=== PATIENT | male | born 1930 | race African-American/Black ===

== ENCOUNTER 2016-10-08 15:02 | Inpatient (IN) | payer OTHER ==
[~2016-10-08] VITALS: Ht 175.3 cm; Wt 70.4 kg
[~2016-10-08 15:02] MED LIST: ACET500T68 PO; AMLO10TA2 PO; AMLO5TAB2 PO; ASPI-39 PO; ASPI81TA2 PO; CARB1TAB48 PO; CLON0.5T3 PO; CLOP75TA PO; CLOP75TA27 PO; CRESTOR20 MG PO; DOCU240C13 PO; DONE10TA34 PO; DULO30CA2 PO; ERGO500012 PO; EZET10TA3 PO; FERR-26 PO; HYDR-971 PO; ISOS60TA2 PO; LORA0.5T PO; MAG355OR30 PO; MEMA5TAB PO; METO-269 PO; NITR0.4T6 SL; QUET25TA PO; RANO500T2 PO
--- NOTE | 2016-10-08 15:59 | RAD ---
Indication change in mental status. Unresponsive. Suspect CVA. Protocol exam. A single view of the chest was obtained and is compared to a study 12/13/2013. Postoperative changes are noted. Heart size is within normal limits. There is no congestive heart failure focal infiltrate or significant pleural fluid collection. IMPRESSION: No acute finding apparent in the chest
[2016-10-08 16:51] LABS: BASO % 0 % (0-3); EOS % 4 % (0-3); HEMATOCRIT 35.4 % (39.0-53.0); HEMOGLOBIN 11.3 g/dL (13.0-17.5); LYMPH # 1.4 x10^3/uL (1.0-4.8); LYMPH % 32 % (24-48); MEAN CORPUSCULAR HEMOGLOBIN 29 pg (25-35); MEAN CORPUSCULAR HGB CONC 32 g/dL (31-37); MEAN CORPUSCULAR VOLUME 90 fL (79-100); MONO % 15 % (0-9); NEUT % 49 % (31-73); PLATELET COUNT 96 x10^3/uL (140-400); RED BLOOD COUNT 3.95 x10^6/uL (4.30-5.70); RED CELL DISTRIBUTION WIDTH 13.1 % (11.5-14.5); WHITE BLOOD COUNT 4.4 x10^3/uL (4.0-11.0)
[2016-10-08 16:59] LABS: INR 1.1 (0.8-1.1); PROTHROMBIN TIME PATIENT 13.5 SEC (11.7-14.0)
--- NOTE | 2016-10-08 17:07 | RAD ---
PROCEDURE CT head without contrast HISTORY Altered mental status, history of stroke TECHNIQUE Noncontrast CT imaging was performed of the head. Exposure: One or more of the following individualized dose reduction techniques were utilized for this exam: 1. Automated exposure control. 2. Adjustment of the mA and/or kV according to patient size. 3. Use of iterative reconstruction technique. COMPARISON November 17, 2013 FINDINGS No acute intracranial hemorrhage is identified. There is again large area of encephalomalacia with cortical involvement centered in the left occipital lobe extending to temporal lobe. There is also area of lower density of the right occipital lobe greater than previous exam. There is no midline shift or intra-axial mass effect. There is again multifocal ill-defined low-density of the supratentorial white matter bilaterally. There is generalized supratentorial atrophy, ventricular size proportional to the sulcal spaces. There is atherosclerotic calcification carotid siphons and intradural vertebral arteries. No acute calvarial abnormality is identified. Mastoid air cells are not significantly pneumatized. Paranasal sinuses are aerated. IMPRESSION 1. There is no evidence of acute intracranial hemorrhage. 2. There is again encephalomalacia of the left occipital and temporal lobes compatible with previous infarct, cortical involvement. There is now some lower density of the right occipital lobe not seen on previous 2013 exam although more likely due to older infarct. If there is suspicion for evolving or acute ischemia, followup CT or MRI is recommended. 3. There is generalized supratentorial atrophy. Ill-defined low-density of the supratentorial white matter is probably due to chronic microvascular ischemic disease in patient this age. Electronically signed by: Salvador Wheatley MD (Oct 08, 2016 17:06:19)
[2016-10-08 17:09] LABS: CALCIUM 8.5 mg/dL (8.5-10.1); CREATININE 2.1 mg/dL (0.7-1.3); GFR 36.5; POTASSIUM 4.5 mmol/L (3.5-5.1)
[2016-10-08 17:20] LABS: ALBUMIN 3.2 g/dL (3.4-5.0); ALBUMIN/GLOBULIN RATIO 0.8 (1.0-1.7); TOTAL BILIRUBIN 0.8 mg/dL (0.2-1.0); TOTAL PROTEIN 7.2 g/dL (6.4-8.2)
[2016-10-08 17:29] LABS: BILIRUBIN,URINE NEGATIVE (NEG); GLUCOSE,URINE NEGATIVE (NEG); NITRITE,URINE NEGATIVE (NEG); PROTEIN,URINE NEGATIVE (NEG-TRACE)
--- NOTE | 2016-10-08 17:39 | EKG ---
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
[2016-10-08 17:40] LABS: BACTERIA,URINE FEW /HPF (0-FEW); BARBITURATES NEG (NEG); BENZODIAZEPINES NEG (NEG); CANNABINOIDS NEG (NEG); COCAINE NEG (NEG); METHADONE NEG (NEG); OPIATES NEG (NEG); PHENCYCLIDINE NEG (NEG); RBC,URINE RARE /HPF (0-2); SQUAMOUS EPITHELIAL CELL,UR FEW /LPF
[2016-10-08 17:44] LABS: ETHANOL, URINE NEG (NEG)
[2016-10-08 17:48] LABS: PLT ESTIMATE DECREASED (ADEQUATE)
[2016-10-08] MEDS ORDERED: IV NORMAL SALINE 1000ML BAG 1,000 ML IV ONE (18:00)
--- NOTE | 2016-10-08 18:02 | ED.ADGEN ---
Past Medical History Past Medical History: CHF, Hypertension, MS, Other Additional Past Medical Histor: ALZHEIMERS Past Surgical History: Coronary Bypass Surgery, Other Additional Past Surgical Histo: UNKNOWN Alcohol Use: None Drug Use: None Adult General Chief Complaint Chief Complaint: ABNORMAL LABS HPI HPI Patient is a 86 year old man, hypertension, CHF, dementia, who presents to the emergency department with report of "abnormal labs". Per patient's family is present within the ED, patient has been acting more agitated over the past several days, eating and drinking poorly, and they were informed today as they were scheduling for the patient a boot with different facility that he had "acute kidney failure", and was told to come to the ED. Laboratory studies that were performed early in the week reveal a creatinine of 3.0, previously the patient's creatinine was 1.6, although it appears that he has fluctuated up to at least 1.9 with the older labs provided on the study. Noted to have a blood urea nitrogen of 51. Patient noted to have poor skin turgor and evidence of dehydration and examination. At this point he appears to be at or near his baseline mental status, with family at bedside. No nausea or vomiting, diarrhea , no injuries, no fevers or chills reported, patient denies any complaints but is stated as an unreliable historian. Review of Systems Review of Systems Constitutional: Denies fever or chills. [] Eyes: Denies change in visual acuity. [] HENT: Denies nasal congestion or sore throat. [] Respiratory: Denies cough or shortness of breath. [] Cardiovascular: Denies chest pain or edema. [] GI: Denies abdominal pain, nausea, vomiting, bloody stools or diarrhea. [] : Denies dysuria. [] Musculoskeletal: Denies back pain or joint pain. [] Integument: Denies rash. [] Neurologic: Denies headache, focal weakness or sensory changes. [] Endocrine: Denies polyuria or polydipsia. [] Lymphatic: Denies swollen glands. [] Psychiatric: Denies depression or anxiety. [] Patient denies complaints but is an unreliable historian based on his history of dementia. Current Medications Current Medications Allergies Allergies Allergies Coded Allergies Type Severity Reaction Last Updated Verified Penicillins Allergy Intermediate Unknown 11/17/13 Yes venlafaxine HCl Adverse Reaction Mild HALLUCINATIONS 11/27/13 Yes Physical Exam Physical Exam Constitutional: Well developed, well nourished, no acute distress, non-toxic appearance. [] HENT: Normocephalic, atraumatic, bilateral external ears normal, oropharynx moist, with dry mucous membranes, no oral exudates, nose normal. [] Eyes: PERRLA, EOMI, conjunctiva normal, no discharge. [] Neck: Normal range of motion, no tenderness, supple, no stridor. Cardiovascular:Heart rate regular rhythm, no murmur, S1, S2, no rubs or gallops. Well-healed midline surgical incision. [] Lungs & Thorax: Bilateral breath sounds clear to auscultation, no wheezing, rhonchi, rales. No chest tenderness or crepitus. [] Abdomen: Bowel sounds normal, soft, no tenderness, no rebound, rigidity, no guarding, no masses, no pulsatile masses. [] Skin: Warm, dry, poor skin turgor noted, veins are flat, no erythema, no rash. [ ] Back: No tenderness, no CVA tenderness. [] Extremities: No tenderness, no cyanosis, no clubbing, ROM intact, no edema. [] Neurologic: Alert, oriented 1, slightly agitated, normal motor function, normal sensory function, no focal deficits noted. [] Psychologic: Affect normal, judgement normal, mood normal. [] Current Patient Data Vital Signs Vital Signs Date Time Temp Pulse Resp B/P Pulse Ox O2 Delivery O2 Flow Rate FiO2 10/08/16 17:33 62 18 196/91 20 Room Air 10/08/16 15:26 98.4 98.4 Lab Values Laboratory Tests Test 10/08/16 16:30 10/08/16 17:00 10/08/16 17:25 White Blood Count 4.4x10^3/uL (4.0-11.0) Red Blood Count 3.95x10^6/uL (4.30-5.70) L Hemoglobin 11.3g/dL (13.0-17.5) L Hematocrit 35.4% (39.0-53.0) L Mean Corpuscular Volume 90fL (79-100) Mean Corpuscular Hemoglobin 29pg (25-35) Mean Corpuscular Hemoglobin Concent 32g/dL (31-37) Red Cell Distribution Width 13.1% (11.5-14.5) Platelet Count 96x10^3/uL (140-400) L Neutrophils (%) (Auto) 49% (31-73) Lymphocytes (%) (Auto) 32% (24-48) Monocytes (%) (Auto) 15% (0-9) H Eosinophils (%) (Auto) 4% (0-3) H Basophils (%) (Auto) 0% (0-3) Neutrophils # (Auto) 2.1x10^3uL (1.8-7.7) Lymphocytes # (Auto) 1.4x10^3/uL (1.0-4.8) Monocytes # (Auto) 0.7x10^3/uL (0.0-1.1) Eosinophils # (Auto) 0.2x10^3/uL (0.0-0.7) Basophils # (Auto) 0.0x10^3/uL (0.0-0.2) Platelet Estimate Decreased (ADEQUATE) Prothrombin Time 13.5SEC (11.7-14.0) Prothrombin Time INR 1.1 (0.8-1.1) PTT 33SEC (24-38) Sodium Level 145mmol/L (136-145) Potassium Level 4.5mmol/L (3.5-5.1) Chloride Level 110mmol/L (98-107) H Carbon Dioxide Level 25mmol/L (21-32) Anion Gap 10 (6-14) Blood Urea Nitrogen 47mg/dL (8-26) H Creatinine 2.1mg/dL (0.7-1.3) H Estimated GFR (Cockcroft-Gault) 36.5 BUN/Creatinine Ratio 22 (6-20) H Glucose Level 115mg/dL (70-99) H Calcium Level 8.5mg/dL (8.5-10.1) Total Bilirubin 0.8mg/dL (0.2-1.0) Aspartate Amino Transferase (AST) 45U/L (15-37) H Alanine Aminotransferase (ALT) 47U/L (16-63) Alkaline Phosphatase 71U/L (46-116) Troponin I Quantitative 0.058ng/mL (0.000-0.055) GM-Lhr-B-Type Natriuretic Peptide 66465lj/mL (0-449) H Total Protein 7.2g/dL (6.4-8.2) Albumin 3.2g/dL (3.4-5.0) L Albumin/Globulin Ratio 0.8 (1.0-1.7) L Thyroid Stimulating Hormone (TSH) 1.389uIU/mL (0.358-3.74) Urine Collection Type Void Urine Color Yellow Urine Clarity Clear Urine pH 5.0 Urine Specific [place] 1.010 Urine Protein Negativemg/dL (NEG-TRACE) Urine Glucose (UA) Negativemg/dL (NEG) Urine Ketones (Stick) Negativemg/dL (NEG) Urine Blood Negative (NEG) Urine Nitrite Negative (NEG) Urine Bilirubin Negative (NEG) Urine Urobilinogen Dipstick 1.0mg/dL (0.2 mg/dL) Urine Leukocyte Esterase Moderate (NEG) Urine RBC Rare/HPF (0-2) Urine WBC 11-20/HPF (0-4) Urine Squamous Epithelial Cells Few/LPF Urine Renal Epithelial Cells Occ/LPF Urine Bacteria Few/HPF (0-FEW) Urine Mucus Slight/LPF Urine Opiates Screen Neg (NEG) Urine Methadone Screen Neg (NEG) Urine Barbiturates Neg (NEG) Urine Phencyclidine Screen Neg (NEG) Urine Amphetamine/Methamphetamine Neg (NEG) Urine Benzodiazepines Screen Neg (NEG) Urine Cocaine Screen Neg (NEG) Urine Cannabinoids Screen Neg (NEG) Urine Ethyl Alcohol Neg (NEG) Influenza Type A Antigen Positive (NEGATIVE) Influenza Type B Antigen Negative (NEGATIVE) Laboratory Tests 10/08/16 16:30 Laboratory Tests 10/08/16 16:30 EKG EKG EC: This rhythm, heart rate 60 beats minute, left axis deviation with left leg hypertrophy, patient with significant baseline artifact, after multiple attempts at obtaining ECG, this EKG is significantly limited interpretation secondary to baseline artifact, however no evidence of ST elevations or depressions identified, QTC of 497, DC 134, QR is of 104, limited ECG as stated. Does not meet STEMI criteria. As interpreted by me. Radiology/Procedures Radiology/Procedures [][facility] [address] [place], [place] [id number] IMAGING REPORT Signed PATIENT: LISA PERAZA ACCOUNT: [id number] : 1930 LOCATION: ER AGE: 86 SEX: M EXAM STATUS: REG ER ORD. PHYSICIAN: YAMILA ROSENBAUM DO REASON: AMS PROCEDURE: HEAD WO CONTRAST PROCEDURE CT head without contrast HISTORY Altered mental status, history of stroke TECHNIQUE Noncontrast CT imaging was performed of the head. Exposure: One or more of the following individualized dose reduction techniques were utilized for this exam: 1. Automated exposure control. 2. Adjustment of the mA and/or kV according to patient size. 3. Use of iterative reconstruction technique. COMPARISON November 17, 2013 FINDINGS No acute intracranial hemorrhage is identified. There is again large area of encephalomalacia with cortical involvement centered in the left occipital lobe extending to temporal lobe. There is also area of lower density of the right occipital lobe greater than previous exam. There is no midline shift or intra-axial mass effect. There is again multifocal ill-defined low-density of the supratentorial white matter bilaterally. There is generalized supratentorial atrophy, ventricular size proportional to the sulcal spaces. There is atherosclerotic calcification carotid siphons and intradural vertebral arteries. No acute calvarial abnormality is identified. Mastoid air cells are not significantly pneumatized. Paranasal sinuses are aerated. IMPRESSION 1. There is no evidence of acute intracranial hemorrhage. 2. There is again encephalomalacia of the left occipital and temporal lobes compatible with previous infarct, cortical involvement. There is now some lower density of the right occipital lobe not seen on previous 2013 exam although more likely due to older infarct. If there is suspicion for evolving or acute ischemia, followup CT or MRI is recommended. 3. There is generalized supratentorial atrophy. Ill-defined low-density of the supratentorial white matter is probably due to chronic microvascular ischemic disease in patient this age. Electronically signed by: Salvador Guzman MD (Oct 08, 2016 17:06:19) DICTATED and SIGNED BY: KIM GUZMAN MD DATE: 10/08/161705 CC: JEAN-PIERRE ANDERSON MD; YAMILA ROSENBAUM DO ~ Impressions: [facility] [address] [place] [address] IMAGING REPORT Signed PATIENT: LISA PERAZA ACCOUNT: [id number] : 1930 LOCATION: ER AGE: 86 SEX: M EXAM STATUS: PRE ER ORD. PHYSICIAN: YAMILA ROSENBAUM DO REASON: AMS PROCEDURE: PORTABLE CHEST 1V Indication change in mental status. Unresponsive. Suspect CVA. Protocol exam. A single view of the chest was obtained and is compared to a study 12/13/2013. Postoperative changes are noted. Heart size is within normal limits. There is no congestive heart failure focal infiltrate or significant pleural fluid collection. IMPRESSION: No acute finding apparent in the chest DICTATED and SIGNED BY: EVANS SOLER MD DATE: 10/08/16 5516 CC: JEAN-PIERRE ANDERSON MD; YAMILA ROSENBAUM DO ~ Course & Med Decision Making Course & Med Decision Making Pertinent Labs and Imaging studies reviewed. (See chart for details) Patient with poor skin turgor, evidence of dehydration clinically, supported by laboratory studies. Patient with history of chronic renal insufficiency, today creatinine is 2.1, with a blood urea nitrogen of 47, urinalysis is unremarkable , chest x-ray and medical, patient is influenza A positive. Patient initiated on Tamiflu in the emergency department. No fever in the ED, also note a mildly elevated troponin at 0.058, discussed with Dr. Anderson, the patient's primary care provider, do not believe is indicative of ischemia, more consistent with renal insufficiency and dehydration, will trend troponin, previously patient's family has declined catheterization other interventional measures. Findings discussed with patient's family, are agreeable with plan for admission the hospital, patient accepted to Dr. Anderson service, with gentle IV hydration, consultation placed for Dr. Silver of cardiology. Patient remained stable in the emergency department, at this point is at his baseline mental status with family at bedside. Dragon Disclaimer Dragon Disclaimer This electronic medical record was generated, in whole or in part, using a voice recognition dictation system. Departure Impression: Primary Impression: Type A influenza Additional Impressions: Dehydration Renal insufficiency Disposition: ADMITTED INPATIENT Admitting Physician: Jean-Pierre Anderson Condition: IMPROVED Problem Qualifiers YAMILA ROSENBAUM DO Oct 08, 2016 18:02
[2016-10-08 18:15] LABS: OBC FLU VALID
[2016-10-08] MEDS ORDERED: OSELTAMIVIR 75 MG CAPSULE PO ONE (18:15)
[2016-10-08] MEDS ORDERED: IV NORMAL SALINE 1000ML BAG 1,000 ML IV SCH (18:38)
[2016-10-08] MEDS ORDERED: ACETAMINOPHEN 325 MG TABLET. PO PRN (18:45)
[2016-10-08] MEDS ORDERED: ONDANSETRON PF 4 MG/2 ML VIAL. IV PRN (18:45)
--- NOTE | 2016-10-08 23:22 | ACF ---
Admission Forms Criteria RENAL FAILURE, ACUTE Clinical Indications for Admission to Inpatient Care ( Place 'X' for any and all applicable criteria): Admission is indicated for ALL (if I & II) or III of the following [A](2)(3)(4)( 5)(6)(7): [ ]I. Acute renal failure as indicated by ANY ONE of the following: [ ]a) A 3-fold rise in serum creatinine from baseline [ ]b) Serum creatinine greater than 4 mg/dL (354 micromoles/L) with an acute rise greater than 0.5 mg/dL (44.2 micromoles/L) [ ]c) Reduction of more than 75% in estimated glomerular filtration rate from baseline [ ]d) Estimated glomerular filtration rate less than 35 mL/min/1.73m2 (0.59mL/sec/1.73m2)in a child up to 18 years of age [ ]e) Anuria indicated by ALL of the following: [ ]i) Adequate volume status [ ]ii) Cessation of urine output indicated by ANY ONE of the following: [ ]1) Urine output less than 0.3 mL/kg/hr for 24 hours [ ]2) Anuria (urine output less than 0.1 mL/kg/ hr) for 12 hours [ ] II. Renal failure cannot be managed in an outpatient setting or observational care setting as indicating by ANY ONE of the following: [ ]a) Altered mental status that is severe or persistent [ ]b) Volume overload or Respiratory distress (eg, clinically significant pulmonary edema) that is severe or persistent [ ]c) Cardiac arrhythmias of immediate concern [ ]d) Hemodynamic instability [ ]e) Clinically significant electrolyte abnormality that requires inpatient care (eg, hyperkalemia with severe ECG findings)[B] [ ]f) Clinically significant metabolic abnormality (eg, acidosis) that is severe or persistent [ ]g) Acute treatment of renal failure (eg, renal replacement therapy) not feasible or appropriate in observational care setting [ ]h) Clinical situation too unstable or uncertain (eg, inadequate urine output, ongoing decline in renal function, etiology unclear) [ ]i) Necessary support and caregiver ability to comply with outpatient treatment cannot be arranged in observation care timeframe (eg, within 24 hours) [ ]j) Other significant finding or clinical condition judged not to be within scope of observation care [X ]III.General contraindications and/or Inappropriate clinical situations for Observational Care in patients with Acute Renal Failure, when ANY ONE of the following is required: [X ]a) Prediction of prolongation of LOS based on ANY ONE of the following may be considered as a contraindication for observational care 2, 3, 4, 5, 6, 7, 8 , 9, 10, 11 [X ]i) Age > 65 yrs. [ ]ii) Patient arriving by ambulance [ ]iii) Patient with high acuity [ ]iv) Patient requiring vital sign monitoring [X ]v) Patient on IV medication [ ]b) Systolic blood pressures 180mmHg 3,12 [ ]c) Patient with altered mental status including delirium and other alteration of consciousness, (3) [ ]d) Patient whose discharge disposition will be to a fdc home or rehabilitation home should not be managed in Emergency Department Observation Unit. CMS rule requires 3 days hospital stay before such placement.3,13 [ ]e) Patient with failure to thrive due to broad array of etiologies 3, 16,17 [ ]f) Inability to ambulate 3,14 Extended stay beyond goal length of stay may be needed for(13) [ ]a) Continuing uremic complications [ ]b) Care for comorbidities [ ]c) acute renal failure [ ]d) Need for dialysis The original [employer] content created by [employer] has been revised. The portions of the content which have been revised are identified through the use of italic text or in bold, and [facility] has neither reviewed nor approved the modified material. All other unmodified content is copyright [facility]. Please see references footnoted in the original [facility] edition 2016 Admission Criteria Met?: Yes BETHANY GOETZ Oct 08, 2016 23:22
[2016-10-09] VITALS (7 sets, daily range): BP systolic 123–208; BP diastolic 62–88
--- NOTE | 2016-10-09 08:30 | EKG ---
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
[2016-10-09 08:45] LABS: BASO % 0 % (0-3); EOS % 4 % (0-3); HEMATOCRIT 32.5 % (39.0-53.0); HEMOGLOBIN 10.5 g/dL (13.0-17.5); LYMPH # 1.4 x10^3/uL (1.0-4.8); LYMPH % 32 % (24-48); MEAN CORPUSCULAR HEMOGLOBIN 29 pg (25-35); MEAN CORPUSCULAR HGB CONC 32 g/dL (31-37); MEAN CORPUSCULAR VOLUME 89 fL (79-100); MONO % 13 % (0-9); NEUT % 51 % (31-73); PLATELET COUNT 90 x10^3/uL (140-400); RED BLOOD COUNT 3.65 x10^6/uL (4.30-5.70); WHITE BLOOD COUNT 4.2 x10^3/uL (4.0-11.0)
[2016-10-09] MEDS ORDERED: ACETAMINOPHEN 325 MG TABLET. PO PRN (09:00)
[2016-10-09] MEDS ORDERED: OSELTAMIVIR 75 MG CAPSULE PO SCH (09:00)
[2016-10-09] MEDS: IV 1/2 NORMAL SALINE 1,000 ML IV SCH (09:00)
--- NOTE | 2016-10-09 09:00 | PDOC ---
Provider Note Provider Note history and physical dictated # [id number] AMBER CRUZ MD Oct 09, 2016 09:00
[2016-10-09 09:01] LABS: CALCIUM 8.2 mg/dL (8.5-10.1); CREATININE 1.9 mg/dL (0.7-1.3)
[2016-10-09] MEDS: OSELTAMIVIR 30 MG CAPSULE PO SCH (09:23)
--- NOTE | 2016-10-09 11:05 | PDOC ---
Provider Note Provider Note eLEVATED TROPONIN PROBABLY SECONDARY TO RENAL DTSFUNCTION.fULL CONSULT TO FOLLOW CORNELIA ROCHA MD Oct 09, 2016 11:05
--- NOTE | 2016-10-09 16:01 | PDOC2 ---
CONSULT Date of Consult Date of Consult DATE: 10/09/16 TIME: 15:55 Past Medical History Cardiovascular: CAD, CHF, HTN, NE, Hyperlipidemia, Other Pulmonary: Pneumonia CENTRAL NERVOUS SYSTEM: CVA, Dementia Musculoskeletal: No pain Renal/: Chronic renal insuff Past Surgical History Past Surgical History: CABG Family History Family History: No Significant Social History ALCOHOL: none Drugs: None Lives: [facility] Domestic Violence: Neg Current Problem List Problem List Problems Medical Problems: (1) Dehydration Status: Acute (2) Mental status change Status: Acute (3) Renal insufficiency Status: Acute (4) Type A influenza Status: Acute Current Medications Current Medications Current Medications Sodium Chloride (Iv Sodium Chloride 0.9% 1000ml Bag) 1,000 ml @ 60 mls/hr 1X ONCE IV Last administered on 10/08/16 19:22; Start 10/08/16 at 18:00; Stop 10/09 at 10:39; Status DC Oseltamivir Phosphate (Tamiflu) 75 mg BID PO ; Start 10/09/16 at 09:00; Stop at 08:59; Status Cancel Oseltamivir Phosphate (Tamiflu) 75 mg 1X ONCE PO Last administered on 18:15; Start 10/08/16 at 18:15; Stop 10/08/16 at 18:16; Status DC Oseltamivir Phosphate (Tamiflu) 30 mg DAILY PO Last administered on 10/09/16 09:23; Start 10/09/16 at 09:00; Stop 10/14/16 at 08:59 Ondansetron HCl 4 mg 4 mg PRN Q8HRS PRN IV NAUSEA/VOMITING; Start 10/08/16 at 18 :45; Stop 10/09/16 at 18:44 Sodium Chloride (Iv Sodium Chloride 0.9% 1000ml Bag) 1,000 ml @ 60 mls/hr [id number] IV ; Start 10/08/16 at 18:38; Stop 10/09/16 at 09:07; Status DC Acetaminophen 650 mg 650 mg PRN Q4HRS PRN PO FEVER; Start 10/08/16 at 18:45; Stop 10/09/16 at 18:44 Sodium Chloride (Iv Sodium Chloride 0.45%) 1,000 ml @ 60 mls/hr [id number] IV Last administered on 2/10/17at 09:00; Start 10/09/16 at 09:00 Acetaminophen (Tylenol) 650 mg PRN Q4HRS PRN PO MILD PAIN / TEMP; Start at 09:00 Active Scripts Active Reported NITROGLYCERIN SubLingual (Nitroglycerin) 0.4 Mg Tab.subl 0.4 Mg SL Clopidogrel (Clopidogrel Bisulfate) 75 Mg Tablet 75 Mg PO DAILY Aspirin 81 Mg Tab.chew 81 Mg PO DAILY Amlodipine Besylate 5 Mg Tablet 5 Mg PO DAILY Crestor (Rosuvastatin Calcium) 20 Mg Tablet 20 Mg PO DAILY Isosorbide Mononitrate Er (Isosorbide Mononitrate) 60 Mg Tab.er.24h 60 Mg PO DAILY Toprol Xl (Metoprolol Succinate) 50 Mg Tab.er.24h 50 Mg PO DAILY Namenda (Memantine Hcl) 5 Mg Tablet 5 Mg PO HS Ranexa (Ranolazine) 500 Mg Tab.er.12h 500 Mg PO Zetia (Ezetimibe) 10 Mg Tablet 10 Mg PO DAILY Aricept (Donepezil Hcl) 10 Mg Tablet 10 Mg PO HS Allergies Allergies: Coded Allergies: Penicillins (Verified Allergy, Intermediate, Unknown, 11/17/13) venlafaxine HCl (Verified Adverse Reaction, Mild, HALLUCINATIONS, 11/27/13) ROS Review of System unable to obtaine from the pt due to very [place] , Dementia and ? AMS Physical Exam Physical Exam GEN: Awake, Oriented x ?, In no distress EYES: Vision Unchanged, Conjunctiva Normal EN: No EN Drainage, Mucous Membranes moist NECK: no JVD, no JVP, Supple, no Thyromegaly CVS: S1S2, ? Murmur, No Gallop, No Rub,no Edema RESP: no Rales, no Rhonchi,no Acc. Muscle Use GI: BS + ve, NO Bruit, Non Tender, Non Distended : no CVA tenderness, no Suprapubic Tenderness Vital Signs Vital Signs Date Time Temp Pulse Resp B/P Pulse Ox O2 Delivery O2 Flow Rate FiO2 10/09/16 11:51 98.4 74 20 123/62 97 Room Air 98.4 Assessment & Plan FAUSTINO - dehydration - better with IVF as given - encourage PO fluids as mary ellen CKD III/ Iv - Craet back to baseline dehydration - ? Needs PEG Flu - defer management to Dr Drury Will be available over the weekend - Pl call with Labs Labs Laboratory Tests Test 10/08/16 16:30 10/08/16 17:00 10/08/16 17:25 10/09/16 02:20 White Blood Count 4.4x10^3/uL (4.0-11.0) Red Blood Count 3.95x10^6/uL (4.30-5.70) Hemoglobin 11.3g/dL (13.0-17.5) Hematocrit 35.4% (39.0-53.0) Mean Corpuscular Volume 90fL (79-100) Mean Corpuscular Hemoglobin 29pg (25-35) Mean Corpuscular Hemoglobin Concent 32g/dL (31-37) Red Cell Distribution Width 13.1% (11.5-14.5) Platelet Count 96x10^3/uL (140-400) Neutrophils (%) (Auto) 49% (31-73) Lymphocytes (%) (Auto) 32% (24-48) Monocytes (%) (Auto) 15% (0-9) Eosinophils (%) (Auto) 4% (0-3) Basophils (%) (Auto) 0% (0-3) Neutrophils # (Auto) 2.1x10^3uL (1.8-7.7) Lymphocytes # (Auto) 1.4x10^3/uL (1.0-4.8) Monocytes # (Auto) 0.7x10^3/uL (0.0-1.1) Eosinophils # (Auto) 0.2x10^3/uL (0.0-0.7) Basophils # (Auto) 0.0x10^3/uL (0.0-0.2) Platelet Estimate Decreased (ADEQUATE) Prothrombin Time 13.5SEC (11.7-14.0) Prothromb Time International Ratio 1.1 (0.8-1.1) Activated Partial Thromboplast Time 33SEC (24-38) Sodium Level 145mmol/L (136-145) Potassium Level 4.5mmol/L (3.5-5.1) Chloride Level 110mmol/L (98-107) Carbon Dioxide Level 25mmol/L (21-32) Anion Gap 10 (6-14) Blood Urea Nitrogen 47mg/dL (8-26) Creatinine 2.1mg/dL (0.7-1.3) Estimated GFR (Cockcroft-Gault) 36.5 BUN/Creatinine Ratio 22 (6-20) Glucose Level 115mg/dL (70-99) Calcium Level 8.5mg/dL (8.5-10.1) Total Bilirubin 0.8mg/dL (0.2-1.0) Aspartate Amino Transf (AST/SGOT) 45U/L (15-37) Alanine Aminotransferase (ALT/SGPT) 47U/L (16-63) Alkaline Phosphatase 71U/L (46-116) Troponin I Quantitative 0.058ng/mL (0.000-0.055) 0.060ng/mL (0.000-0.055) ZO-Ebd-F-Type Natriuretic Peptide 90855jn/mL (0-449) Total Protein 7.2g/dL (6.4-8.2) Albumin 3.2g/dL (3.4-5.0) Albumin/Globulin Ratio 0.8 (1.0-1.7) Thyroid Stimulating Hormone (TSH) 1.389uIU/mL (0.358-3.74) Urine Collection Type Void Urine Color Yellow Urine Clarity Clear Urine pH 5.0 Urine Specific Jerome 1.010 Urine Protein Negativemg/dL (NEG-TRACE) Urine Glucose (UA) Negativemg/dL (NEG) Urine Ketones (Stick) Negativemg/dL (NEG) Urine Blood Negative (NEG) Urine Nitrite Negative (NEG) Urine Bilirubin Negative (NEG) Urine Urobilinogen Dipstick 1.0mg/dL (0.2 mg/dL) Urine Leukocyte Esterase Moderate (NEG) Urine RBC Rare/HPF (0-2) Urine WBC 11-20/HPF (0-4) Urine Squamous Epithelial Cells Few/LPF Urine Renal Epithelial Cells Occ/LPF Urine Bacteria Few/HPF (0-FEW) Urine Mucus Slight/LPF Urine Opiates Screen Neg (NEG) Urine Methadone Screen Neg (NEG) Urine Barbiturates Neg (NEG) Urine Phencyclidine Screen Neg (NEG) Urine Amphetamine/Methamphetamine Neg (NEG) Urine Benzodiazepines Screen Neg (NEG) Urine Cocaine Screen Neg (NEG) Urine Cannabinoids Screen Neg (NEG) Urine Ethyl Alcohol Neg (NEG) Influenza Type A Antigen Positive (NEGATIVE) Influenza Type B Antigen Negative (NEGATIVE) Test 10/09/16 08:25 White Blood Count 4.2x10^3/uL (4.0-11.0) Red Blood Count 3.65x10^6/uL (4.30-5.70) Hemoglobin 10.5g/dL (13.0-17.5) Hematocrit 32.5% (39.0-53.0) Mean Corpuscular Volume 89fL (79-100) Mean Corpuscular Hemoglobin 29pg (25-35) Mean Corpuscular Hemoglobin Concent 32g/dL (31-37) Red Cell Distribution Width 13.0% (11.5-14.5) Platelet Count 90x10^3/uL (140-400) Neutrophils (%) (Auto) 51% (31-73) Lymphocytes (%) (Auto) 32% (24-48) Monocytes (%) (Auto) 13% (0-9) Eosinophils (%) (Auto) 4% (0-3) Basophils (%) (Auto) 0% (0-3) Neutrophils # (Auto) 2.1x10^3uL (1.8-7.7) Lymphocytes # (Auto) 1.4x10^3/uL (1.0-4.8) Monocytes # (Auto) 0.6x10^3/uL (0.0-1.1) Eosinophils # (Auto) 0.2x10^3/uL (0.0-0.7) Basophils # (Auto) 0.0x10^3/uL (0.0-0.2) Sodium Level 145mmol/L (136-145) Potassium Level 4.0mmol/L (3.5-5.1) Chloride Level 110mmol/L (98-107) Carbon Dioxide Level 26mmol/L (21-32) Anion Gap 9 (6-14) Blood Urea Nitrogen 38mg/dL (8-26) Creatinine 1.9mg/dL (0.7-1.3) Estimated GFR (Cockcroft-Gault) 41.0 Glucose Level 89mg/dL (70-99) Calcium Level 8.2mg/dL (8.5-10.1) Troponin I Quantitative 0.055ng/mL (0.000-0.055) Laboratory Tests Test 10/08/16 16:30 10/08/16 17:00 10/08/16 17:25 10/09/16 02:20 White Blood Count 4.4x10^3/uL (4.0-11.0) Red Blood Count 3.95x10^6/uL (4.30-5.70) Hemoglobin 11.3g/dL (13.0-17.5) Hematocrit 35.4% (39.0-53.0) Mean Corpuscular Volume 90fL (79-100) Mean Corpuscular Hemoglobin 29pg (25-35) Mean Corpuscular Hemoglobin Concent 32g/dL (31-37) Red Cell Distribution Width 13.1% (11.5-14.5) Platelet Count 96x10^3/uL (140-400) Neutrophils (%) (Auto) 49% (31-73) Lymphocytes (%) (Auto) 32% (24-48) Monocytes (%) (Auto) 15% (0-9) Eosinophils (%) (Auto) 4% (0-3) Basophils (%) (Auto) 0% (0-3) Neutrophils # (Auto) 2.1x10^3uL (1.8-7.7) Lymphocytes # (Auto) 1.4x10^3/uL (1.0-4.8) Monocytes # (Auto) 0.7x10^3/uL (0.0-1.1) Eosinophils # (Auto) 0.2x10^3/uL (0.0-0.7) Basophils # (Auto) 0.0x10^3/uL (0.0-0.2) Platelet Estimate Decreased (ADEQUATE) Prothrombin Time 13.5SEC (11.7-14.0) Prothromb Time International Ratio 1.1 (0.8-1.1) Activated Partial Thromboplast Time 33SEC (24-38) Sodium Level 145mmol/L (136-145) Potassium Level 4.5mmol/L (3.5-5.1) Chloride Level 110mmol/L (98-107) Carbon Dioxide Level 25mmol/L (21-32) Anion Gap 10 (6-14) Blood Urea Nitrogen 47mg/dL (8-26) Creatinine 2.1mg/dL (0.7-1.3) Estimated GFR (Cockcroft-Gault) 36.5 BUN/Creatinine Ratio 22 (6-20) Glucose Level 115mg/dL (70-99) Calcium Level 8.5mg/dL (8.5-10.1) Total Bilirubin 0.8mg/dL (0.2-1.0) Aspartate Amino Transf (AST/SGOT) 45U/L (15-37) Alanine Aminotransferase (ALT/SGPT) 47U/L (16-63) Alkaline Phosphatase 71U/L (46-116) Troponin I Quantitative 0.058ng/mL (0.000-0.055) 0.060ng/mL (0.000-0.055) XB-Rbj-V-Type Natriuretic Peptide 47079ql/mL (0-449) Total Protein 7.2g/dL (6.4-8.2) Albumin 3.2g/dL (3.4-5.0) Albumin/Globulin Ratio 0.8 (1.0-1.7) Thyroid Stimulating Hormone (TSH) 1.389uIU/mL (0.358-3.74) Urine Collection Type Void Urine Color Yellow Urine Clarity Clear Urine pH 5.0 Urine Specific Jerome 1.010 Urine Protein Negativemg/dL (NEG-TRACE) Urine Glucose (UA) Negativemg/dL (NEG) Urine Ketones (Stick) Negativemg/dL (NEG) Urine Blood Negative (NEG) Urine Nitrite Negative (NEG) Urine Bilirubin Negative (NEG) Urine Urobilinogen Dipstick 1.0mg/dL (0.2 mg/dL) Urine Leukocyte Esterase Moderate (NEG) Urine RBC Rare/HPF (0-2) Urine WBC 11-20/HPF (0-4) Urine Squamous Epithelial Cells Few/LPF Urine Renal Epithelial Cells Occ/LPF Urine Bacteria Few/HPF (0-FEW) Urine Mucus Slight/LPF Urine Opiates Screen Neg (NEG) Urine Methadone Screen Neg (NEG) Urine Barbiturates Neg (NEG) Urine Phencyclidine Screen Neg (NEG) Urine Amphetamine/Methamphetamine Neg (NEG) Urine Benzodiazepines Screen Neg (NEG) Urine Cocaine Screen Neg (NEG) Urine Cannabinoids Screen Neg (NEG) Urine Ethyl Alcohol Neg (NEG) Influenza Type A Antigen Positive (NEGATIVE) Influenza Type B Antigen Negative (NEGATIVE) Test 10/09/16 08:25 White Blood Count 4.2x10^3/uL (4.0-11.0) Red Blood Count 3.65x10^6/uL (4.30-5.70) Hemoglobin 10.5g/dL (13.0-17.5) Hematocrit 32.5% (39.0-53.0) Mean Corpuscular Volume 89fL (79-100) Mean Corpuscular Hemoglobin 29pg (25-35) Mean Corpuscular Hemoglobin Concent 32g/dL (31-37) Red Cell Distribution Width 13.0% (11.5-14.5) Platelet Count 90x10^3/uL (140-400) Neutrophils (%) (Auto) 51% (31-73) Lymphocytes (%) (Auto) 32% (24-48) Monocytes (%) (Auto) 13% (0-9) Eosinophils (%) (Auto) 4% (0-3) Basophils (%) (Auto) 0% (0-3) Neutrophils # (Auto) 2.1x10^3uL (1.8-7.7) Lymphocytes # (Auto) 1.4x10^3/uL (1.0-4.8) Monocytes # (Auto) 0.6x10^3/uL (0.0-1.1) Eosinophils # (Auto) 0.2x10^3/uL (0.0-0.7) Basophils # (Auto) 0.0x10^3/uL (0.0-0.2) Sodium Level 145mmol/L (136-145) Potassium Level 4.0mmol/L (3.5-5.1) Chloride Level 110mmol/L (98-107) Carbon Dioxide Level 26mmol/L (21-32) Anion Gap 9 (6-14) Blood Urea Nitrogen 38mg/dL (8-26) Creatinine 1.9mg/dL (0.7-1.3) Estimated GFR (Cockcroft-Gault) 41.0 Glucose Level 89mg/dL (70-99) Calcium Level 8.2mg/dL (8.5-10.1) Troponin I Quantitative 0.055ng/mL (0.000-0.055) KAT JONES MD Oct 09, 2016 16:01
--- NOTE | 2016-10-09 20:46 | CARD ---
APPROVED REPORT EXAM: Two-dimensional and M-mode echocardiogram with Doppler and color Doppler. Other Information Quality : Technically Limited Technically limited study due to body habitus. INDICATION Cardiomyopathy 2D DIMENSIONS Left Atrium(2D)3.1 (1.6-4.0cm)IVSd1.2 (0.7-1.1cm) Aortic Root(2D)2.7 (2.0-3.7cm)LVDd5.4 (3.9-5.9cm) LVOT Diameter1.9 (1.8-2.4cm)PWd1.1 (0.7-1.1cm) LVDs5.2 (2.5-4.0cm)FS (%) 5.0 % SV10.9 mlLVEF(%)10.0 (>50%) Aortic Valve AoV Peak Michael.95.3cm/sAoV VTI16.8cm AO Peak GR.3.6mmHgLVOT Peak Michael.72.4cm/s LVOT VTI 13.54cmAO Mean GR.2mmHg ANISH (VMAX)2.43yk5LXH (VTI)2.25cm2 Pulmonary Vein S1 Wwwcoure76.9cm/sD2 Krukgeeo19.6cm/s PVa [id number] LEFT VENTRICLE The left ventricle is mildly enlarged. 25.38 centimeters. There is mild concentric left ventricular h ypertrophy. Left ventricle ejection fraction is severely impaired. The Ejection Fraction is 10-15%. T here is severe global hypokinesis of the left ventricl but most prominent over the anterior wall and apex.. RIGHT VENTRICLE The right ventricle is normal size. The right ventricular systolic function is normal. ATRIA The left atrium size is normal. The right atrium size is normal. The interatrial septum is intact wit h no evidence for an atrial septal defect or patent foramen ovale as noted on 2-D or Doppler imaging. AORTIC VALVE The aortic valve is moderately thickened but opens well. Doppler and Color Flow revealed no significa nt aortic regurgitation. There is no significant aortic valvular stenosis. MITRAL VALVE The mitral valve is calcified but opens well. A redundant posterior mitral valve leaflet is visualize d. There is no mitral valve stenosis. Doppler and Color-flow revealed trace to mild mitral regurgitat ion. TRICUSPID VALVE The tricuspid valve is normal in structure and function. Doppler and Color Flow revealed trace tricus pid regurgitation. There is no tricuspid valve stenosis. PULMONIC VALVE The pulmonary valve is normal in structure and function. Doppler and Color Flow revealed no pulmonic valvular regurgitation. There is no pulmonic valvular stenosis. GREAT VESSELS The aortic root is normal in size. The ascending aorta is not well seen. The IVC was not visualized. PERICARDIAL EFFUSION There is no evidence of significant pericardial effusion. Critical Notification Critical Value: No <Conclusion> The left ventricle is mildly enlarged. 25.38 centimeters. There is mild concentric left ventricular hypertrophy. Left ventricle ejection fraction is severely impaired. The Ejection Fraction is 10-15%. There is severe global hypokinesis of the left ventricl but most prominent over the anterior wall and apex That is probably a diastolic dysfunction. There is no pericardial effusion. There is no mitral stenosis and the mild mitral regurgitation The left atrium is of normal size. The aortic valve is tricuspid and the valve leaflets are thickened. There is no significant aortic stenosis or aortic regurgitation. Right ventricle is upper normal size with normal systolic function. There is only a trace tricuspid regurgitation and so the right ventricular systolic pressure could no t be measured. IMPRESSION Ischemic cardiomyopathy with an ejection fraction of 10-15%.
[2016-10-10] VITALS (7 sets, daily range): BP systolic 135–172; BP diastolic 71–83
--- NOTE | 2016-10-10 01:22 | HP ---
ADMIT DATE: 10/08/2016 PATIENT'S ROOM: 207 HISTORY OF PRESENT ILLNESS: The patient is an 86-year-old -[place] male resident of a long-term cared for by another physician who sent to the [facility] Emergency Room as he has not been eating or drinking well in the last several days and his BUN and creatinine were much higher with a serum creatinine up to 3.0 with a baseline apparently at 1.6 at the long-term. The patient cannot give any type of history at all and his long-term records are missing from the chart. He ____ did test positive for influenza type A in the Emergency Room and also was noted to have acute kidney injury on top of chronic kidney disease, and subsequently went to the hospital and started on IV fluids. He does have a history of Alzheimer's disease, chronic systolic congestive heart failure, coronary artery disease, hypertension and hyperlipidemia. He has had cerebrovascular accidents in the past. A CAT scan of the head in the Emergency Room showed an old right occipital infarct new since 2013, but old and a left occipital and temporal infarct with atrophy. He is therefore admitted for further evaluation and treatment of his influenza type A, acute kidney injury on top of chronic kidney disease. ALLERGIES AND INTOLERANCES: PENICILLIN AND EFFEXOR. MEDICATIONS: Prior to admission, according to the summary record, he was on amlodipine 5 mg every day, aspirin 81 mg every day, Plavix 75 mg every day, Aricept 10 mg at bedtime, Zetia 10 mg every day, Imdur 60 mg every day, Namenda 5 mg at bedtime, metoprolol succinate 50 mg every day, nitroglycerin 0.4 mg sublingual p.r.n., Ranexa 500 mg every 12 hours and Crestor 20 mg every day. PAST MEDICAL HISTORY: Significant for chronic systolic congestive heart failure. Echocardiogram done in 12/12/2013 showed a left ventricular ejection fraction of 35-40%. He also had a myocardial perfusion imaging stress test in June 2013, which showed large areas of mixed perfusion defects. He has a history of chronic systolic congestive heart failure, Alzheimer's disease, hypertension, hyperlipidemia, coronary artery disease, chronic kidney disease stage III, cerebrovascular accident in and coronary artery bypass graft surgery. SOCIAL HISTORY: Resides in a long-term. Does not drink alcohol nor does he smoke cigarettes. FAMILY HISTORY: Unobtainable. REVIEW OF SYSTEMS: Unobtainable as he is demented. PHYSICAL EXAMINATION: VITAL SIGNS: Temperature is 97.9 degrees, apical pulse is 85 and regular, respiratory rate 19, blood pressure 124/76, oxygen saturation 97% on room air. HEENT: Eyes: Eyes are closed. He is sleeping and does not respond to me, but he does open his eyes when I talked to him and then closes them again. There is no asymmetry in the face. NECK: No cervical lymphadenopathy. HEART: Reveals an S1, S2. There is no S3 or murmur. LUNGS: Clear anteriorly. ABDOMEN: Soft with no hepatosplenomegaly, masses or tenderness. EXTREMITIES: Lower extremities without edema. SKIN: No rashes. NEUROLOGIC: Does not respond to me, appears to be sleeping. LABORATORY DATA: Review of his test results: His influenza type A was positive. White count was 4.4, hemoglobin 11.3 with a platelet count of 96,000 with 49 polys and 32 lymphocytes. INR was 1.1 with a PTT of 33. Sodium 145, potassium 4.5, chloride 110, total CO2 of 25, BUN 47, creatinine 2.1. His blood sugar is 115. Liver function tests were okay except for an SGOT of 45 and albumin 3.2. Troponin was increased at 0.058 and 0.06. TSH level normal. ProBNP was increased at 10,037. Urinalysis showed 11-20 white cells. Urine drug screen was negative. He had an electrocardiogram that showed normal sinus rhythm with a left atrial abnormality. CAT scan of the head is as stated above showing old infarct in the left occipital and temporal area and a right occipital infarct which is old and generalized atrophy. He also had a chest x-ray done which showed no acute abnormality. ASSESSMENT: 1. Influenza type A. 2. Metabolic encephalopathy secondary to the influenza and acute kidney injury. 3. Acute kidney injury on top of chronic kidney disease, stage III. This could be worsened by decreased fluid intake in the long-term. 4. Alzheimer's disease. 5. Coronary artery disease. 6. Ischemic cardiomyopathy. 7. Hypertension. 8. Hyperlipidemia. 9. Chronic systolic congestive heart failure. 10. Thrombocytopenia. PLAN: At this time is to consult Dr. Silver for cardiology and Dr. Stef Cameron for nephrology. We will get a renal sonogram. We will start him on cautious IV fluids. Continue with his long-term medicines, but discontinue the Aricept 5 mg at bedtime due to his renal insufficiency. Recheck a CBC and BMP tomorrow and obtain urine culture for his pyuria. Order some SCDs for deep vein thrombosis prophylaxis. We will order some Tamiflu, is on a reduced dose due to his renal insufficiency. Continue with his IV fluids. is full code here in the Emergency Room. AMBER CRUZ MD DR: MIRIAM/bill JOB#: [id number] / [id number]
[2016-10-10] MEDS: IV 1/2 NORMAL SALINE 1,000 ML IV SCH ×3 (01:47→22:07)
[2016-10-10] MEDS: OSELTAMIVIR 30 MG CAPSULE PO SCH (08:37)
[2016-10-10 09:22] LABS: CALCIUM 8.6 mg/dL (8.5-10.1); CREATININE 1.8 mg/dL (0.7-1.3); GFR 43.6; POTASSIUM 3.9 mmol/L (3.5-5.1)
--- NOTE | 2016-10-10 09:40 | RAD ---
RENAL COMPLETE BILATERAL History:Renal failure Comparison: None Findings:Multiple sonographic images of the kidneys and region of urinary bladder are submitted. Right kidney measured 8.6 x 4.4 x 4.2 cm. Left kidney measured 8.4 x 4.3 x 3.9 cm. There is increased echogenicity of the renal parenchyma bilaterally. There is no hydronephrosis of either kidney. There is 1.6 x 1.4 x 1.2 cm hypoechoic lesion of the inferior right kidney. This is not associated with significant internal vascularity on color Doppler imaging although internal echoes present. Urinary bladder is not well-visualized as not well distended during exam. Impression: 1.There is no hydronephrosis of either kidney. 2. There is increased echogenicity of the renal parenchyma bilaterally which may be seen with medical renal disease. Both kidneys are small. 3. There is a hypoechoic lesion of the right kidney, may be due to a complex cyst which is considered more likely than mass given lack of significant internal vascularity on color Doppler imaging. 6 month follow-up may be beneficial given internal echoes.
[2016-10-10 10:06] LABS: BASO % 0 % (0-3); EOS % 4 % (0-3); HEMATOCRIT 33.6 % (39.0-53.0); HEMOGLOBIN 11.1 g/dL (13.0-17.5); LYMPH # 1.2 x10^3/uL (1.0-4.8); LYMPH % 28 % (24-48); MEAN CORPUSCULAR HEMOGLOBIN 29 pg (25-35); MEAN CORPUSCULAR HGB CONC 33 g/dL (31-37); MEAN CORPUSCULAR VOLUME 88 fL (79-100); MONO % 11 % (0-9); NEUT % 57 % (31-73); PLATELET COUNT 105 x10^3/uL (140-400); RED BLOOD COUNT 3.82 x10^6/uL (4.30-5.70); RED CELL DISTRIBUTION WIDTH 12.9 % (11.5-14.5); WHITE BLOOD COUNT 4.4 x10^3/uL (4.0-11.0)
--- NOTE | 2016-10-10 10:51 | PDOC ---
PROGRESS NOTES Subjective Subjective eyes closed and did not respond to me. nurse says he is hard of hearing. lab reviewed,. echo showed LVEF 10 to 15% which is much worse than 2 years ago. will order metoprolol and hold off on claudio inhibitor or RB due to renal insufficiency for now. eating some per nurse but breakfast not touched this morning. Objective Objective Vital Signs Date Time Temp Pulse Resp B/P Pulse Ox O2 Delivery O2 Flow Rate FiO2 10/10/16 08:00 Room Air 10/10/16 07:00 98.3 76 18 135/71 96 98.3 Intake and Output 10/10/16 07:00 Intake Total 360 ml Balance 360 ml Intake Oral 360 ml # Voids 7 Physical Exam Abdomen: Soft Heart: Regular rate, Normal S1, Normal S2 Extremities: No edema General: Other (eyes closed) HEENT: Atraumatic Lungs: Other (clear anteriorly) Neuro: Other (eyes closed) Psych/Mental Status: Other (eyes closed) Skin: No rashes Assessment Assessment Problems Medical Problems:1. Influenza type A. 2. Metabolic encephalopathy secondary to the influenza and acute kidney injury. 3. chronic kidney disease, stage III. FAUSTINO resolved 4. Alzheimer's disease. 5. Coronary artery disease. 6. Ischemic cardiomyopathy.severe LVEF 10-15% 7. Hypertension. 8. Hyperlipidemia. 9. Chronic systolic congestive heart failure. 10. Thrombocytopenia. mild (1) Dehydration Status: Acute (2) Mental status change Status: Acute (3) Renal insufficiency Status: Acute (4) Type A influenza Status: Acute Plan Plan of Care start metoprolol decrease iv fluids palliative care consult cardiology consult follow bmp tamiflu Comment Review of Relevant I have reviewed the following items jeb (where applicable) has been applied. Labs Laboratory Tests Test 10/08/16 16:30 10/08/16 17:00 10/08/16 17:25 10/09/16 02:20 White Blood Count 4.4x10^3/uL (4.0-11.0) Red Blood Count 3.95x10^6/uL (4.30-5.70) Hemoglobin 11.3g/dL (13.0-17.5) Hematocrit 35.4% (39.0-53.0) Mean Corpuscular Volume 90fL (79-100) Mean Corpuscular Hemoglobin 29pg (25-35) Mean Corpuscular Hemoglobin Concent 32g/dL (31-37) Red Cell Distribution Width 13.1% (11.5-14.5) Platelet Count 96x10^3/uL (140-400) Neutrophils (%) (Auto) 49% (31-73) Lymphocytes (%) (Auto) 32% (24-48) Monocytes (%) (Auto) 15% (0-9) Eosinophils (%) (Auto) 4% (0-3) Basophils (%) (Auto) 0% (0-3) Neutrophils # (Auto) 2.1x10^3uL (1.8-7.7) Lymphocytes # (Auto) 1.4x10^3/uL (1.0-4.8) Monocytes # (Auto) 0.7x10^3/uL (0.0-1.1) Eosinophils # (Auto) 0.2x10^3/uL (0.0-0.7) Basophils # (Auto) 0.0x10^3/uL (0.0-0.2) Platelet Estimate Decreased (ADEQUATE) Prothrombin Time 13.5SEC (11.7-14.0) Prothromb Time International Ratio 1.1 (0.8-1.1) Activated Partial Thromboplast Time 33SEC (24-38) Sodium Level 145mmol/L (136-145) Potassium Level 4.5mmol/L (3.5-5.1) Chloride Level 110mmol/L (98-107) Carbon Dioxide Level 25mmol/L (21-32) Anion Gap 10 (6-14) Blood Urea Nitrogen 47mg/dL (8-26) Creatinine 2.1mg/dL (0.7-1.3) Estimated GFR (Cockcroft-Gault) 36.5 BUN/Creatinine Ratio 22 (6-20) Glucose Level 115mg/dL (70-99) Calcium Level 8.5mg/dL (8.5-10.1) Total Bilirubin 0.8mg/dL (0.2-1.0) Aspartate Amino Transf (AST/SGOT) 45U/L (15-37) Alanine Aminotransferase (ALT/SGPT) 47U/L (16-63) Alkaline Phosphatase 71U/L (46-116) Troponin I Quantitative 0.058ng/mL (0.000-0.055) 0.060ng/mL (0.000-0.055) BO-Kcw-R-Type Natriuretic Peptide 64623bj/mL (0-449) Total Protein 7.2g/dL (6.4-8.2) Albumin 3.2g/dL (3.4-5.0) Albumin/Globulin Ratio 0.8 (1.0-1.7) Thyroid Stimulating Hormone (TSH) 1.389uIU/mL (0.358-3.74) Urine Collection Type Void Urine Color Yellow Urine Clarity Clear Urine pH 5.0 Urine Specific [place] 1.010 Urine Protein Negativemg/dL (NEG-TRACE) Urine Glucose (UA) Negativemg/dL (NEG) Urine Ketones (Stick) Negativemg/dL (NEG) Urine Blood Negative (NEG) Urine Nitrite Negative (NEG) Urine Bilirubin Negative (NEG) Urine Urobilinogen Dipstick 1.0mg/dL (0.2 mg/dL) Urine Leukocyte Esterase Moderate (NEG) Urine RBC Rare/HPF (0-2) Urine WBC 11-20/HPF (0-4) Urine Squamous Epithelial Cells Few/LPF Urine Renal Epithelial Cells Occ/LPF Urine Bacteria Few/HPF (0-FEW) Urine Mucus Slight/LPF Urine Opiates Screen Neg (NEG) Urine Methadone Screen Neg (NEG) Urine Barbiturates Neg (NEG) Urine Phencyclidine Screen Neg (NEG) Urine Amphetamine/Methamphetamine Neg (NEG) Urine Benzodiazepines Screen Neg (NEG) Urine Cocaine Screen Neg (NEG) Urine Cannabinoids Screen Neg (NEG) Urine Ethyl Alcohol Neg (NEG) Influenza Type A Antigen Positive (NEGATIVE) Influenza Type B Antigen Negative (NEGATIVE) Test 10/09/16 08:25 10/10/16 08:40 10/10/16 08:56 White Blood Count 4.2x10^3/uL (4.0-11.0) 4.4x10^3/uL (4.0-11.0) Red Blood Count 3.65x10^6/uL (4.30-5.70) 3.82x10^6/uL (4.30-5.70) Hemoglobin 10.5g/dL (13.0-17.5) 11.1g/dL (13.0-17.5) Hematocrit 32.5% (39.0-53.0) 33.6% (39.0-53.0) Mean Corpuscular Volume 89fL (79-100) 88fL (79-100) Mean Corpuscular Hemoglobin 29pg (25-35) 29pg (25-35) Mean Corpuscular Hemoglobin Concent 32g/dL (31-37) 33g/dL (31-37) Red Cell Distribution Width 13.0% (11.5-14.5) 12.9% (11.5-14.5) Platelet Count 90x10^3/uL (140-400) 105x10^3/uL (140-400) Neutrophils (%) (Auto) 51% (31-73) 57% (31-73) Lymphocytes (%) (Auto) 32% (24-48) 28% (24-48) Monocytes (%) (Auto) 13% (0-9) 11% (0-9) Eosinophils (%) (Auto) 4% (0-3) 4% (0-3) Basophils (%) (Auto) 0% (0-3) 0% (0-3) Neutrophils # (Auto) 2.1x10^3uL (1.8-7.7) 2.5x10^3uL (1.8-7.7) Lymphocytes # (Auto) 1.4x10^3/uL (1.0-4.8) 1.2x10^3/uL (1.0-4.8) Monocytes # (Auto) 0.6x10^3/uL (0.0-1.1) 0.5x10^3/uL (0.0-1.1) Eosinophils # (Auto) 0.2x10^3/uL (0.0-0.7) 0.2x10^3/uL (0.0-0.7) Basophils # (Auto) 0.0x10^3/uL (0.0-0.2) 0.0x10^3/uL (0.0-0.2) Sodium Level 145mmol/L (136-145) 145mmol/L (136-145) Potassium Level 4.0mmol/L (3.5-5.1) 3.9mmol/L (3.5-5.1) Chloride Level 110mmol/L (98-107) 110mmol/L (98-107) Carbon Dioxide Level 26mmol/L (21-32) 27mmol/L (21-32) Anion Gap 9 (6-14) 8 (6-14) Blood Urea Nitrogen 38mg/dL (8-26) 35mg/dL (8-26) Creatinine 1.9mg/dL (0.7-1.3) 1.8mg/dL (0.7-1.3) Estimated GFR (Cockcroft-Gault) 41.0 43.6 Glucose Level 89mg/dL (70-99) 88mg/dL (70-99) Calcium Level 8.2mg/dL (8.5-10.1) 8.6mg/dL (8.5-10.1) Troponin I Quantitative 0.055ng/mL (0.000-0.055) Laboratory Tests Test 10/10/16 08:40 10/10/16 08:56 Sodium Level 145mmol/L (136-145) Potassium Level 3.9mmol/L (3.5-5.1) Chloride Level 110mmol/L (98-107) Carbon Dioxide Level 27mmol/L (21-32) Anion Gap 8 (6-14) Blood Urea Nitrogen 35mg/dL (8-26) Creatinine 1.8mg/dL (0.7-1.3) Estimated GFR (Cockcroft-Gault) 43.6 Glucose Level 88mg/dL (70-99) Calcium Level 8.6mg/dL (8.5-10.1) White Blood Count 4.4x10^3/uL (4.0-11.0) Red Blood Count 3.82x10^6/uL (4.30-5.70) Hemoglobin 11.1g/dL (13.0-17.5) Hematocrit 33.6% (39.0-53.0) Mean Corpuscular Volume 88fL (79-100) Mean Corpuscular Hemoglobin 29pg (25-35) Mean Corpuscular Hemoglobin Concent 33g/dL (31-37) Red Cell Distribution Width 12.9% (11.5-14.5) Platelet Count 105x10^3/uL (140-400) Neutrophils (%) (Auto) 57% (31-73) Lymphocytes (%) (Auto) 28% (24-48) Monocytes (%) (Auto) 11% (0-9) Eosinophils (%) (Auto) 4% (0-3) Basophils (%) (Auto) 0% (0-3) Neutrophils # (Auto) 2.5x10^3uL (1.8-7.7) Lymphocytes # (Auto) 1.2x10^3/uL (1.0-4.8) Monocytes # (Auto) 0.5x10^3/uL (0.0-1.1) Eosinophils # (Auto) 0.2x10^3/uL (0.0-0.7) Basophils # (Auto) 0.0x10^3/uL (0.0-0.2) Microbiology 10/08/16 Urine Culture - Preliminary, Resulted 10/08/16 Urine Culture Result 1 (HERBIE) - Preliminary, Resulted Medications Current Medications Sodium Chloride (Iv Sodium Chloride 0.9% 1000ml Bag) 1,000 ml @ 60 mls/hr 1X ONCE IV Last administered on 10/08/16 19:22; Start 10/08/16 at 18:00; Stop 10/09 at 10:39; Status DC Oseltamivir Phosphate (Tamiflu) 75 mg BID PO ; Start 10/09/16 at 09:00; Stop at 08:59; Status Cancel Oseltamivir Phosphate (Tamiflu) 75 mg 1X ONCE PO Last administered on 18:15; Start 10/08/16 at 18:15; Stop 10/08/16 at 18:16; Status DC Oseltamivir Phosphate (Tamiflu) 30 mg DAILY PO Last administered on 10/10/16 08:37; Start 10/09/16 at 09:00; Stop 10/14/16 at 08:59 Ondansetron HCl 4 mg 4 mg PRN Q8HRS PRN IV NAUSEA/VOMITING; Start 10/08/16 at 18 :45; Stop 10/09/16 at 18:44; Status DC Sodium Chloride (Iv Sodium Chloride 0.9% 1000ml Bag) 1,000 ml @ 60 mls/hr [id number] IV ; Start 10/08/16 at 18:38; Stop 10/09/16 at 09:07; Status DC Acetaminophen 650 mg 650 mg PRN Q4HRS PRN PO FEVER; Start 10/08/16 at 18:45; Stop 10/09/16 at 16:24; Status DC Sodium Chloride (Iv Sodium Chloride 0.45%) 1,000 ml @ 60 mls/hr [id number] IV Last administered on 10/10/16t 08:37; Start 10/09/16 at 09:00 Acetaminophen (Tylenol) 650 mg PRN Q4HRS PRN PO MILD PAIN / TEMP; Start at 09:00 Active Scripts Active Reported NITROGLYCERIN SubLingual (Nitroglycerin) 0.4 Mg Tab.subl 0.4 Mg SL Clopidogrel (Clopidogrel Bisulfate) 75 Mg Tablet 75 Mg PO DAILY Aspirin 81 Mg Tab.chew 81 Mg PO DAILY Amlodipine Besylate 5 Mg Tablet 5 Mg PO DAILY Crestor (Rosuvastatin Calcium) 20 Mg Tablet 20 Mg PO DAILY Isosorbide Mononitrate Er (Isosorbide Mononitrate) 60 Mg Tab.er.24h 60 Mg PO DAILY Toprol Xl (Metoprolol Succinate) 50 Mg Tab.er.24h 50 Mg PO DAILY Namenda (Memantine Hcl) 5 Mg Tablet 5 Mg PO HS Ranexa (Ranolazine) 500 Mg Tab.er.12h 500 Mg PO Zetia (Ezetimibe) 10 Mg Tablet 10 Mg PO DAILY Aricept (Donepezil Hcl) 10 Mg Tablet 10 Mg PO HS Vitals/I & O Vital Sign - Last 24 Hours 10/09/16 10/09/16 10/09/16 10/09/16 11:51 15:00 19:40 20:22 Temp 98.4 98.3 98.0 98.4 98.3 98.0 Pulse 74 80 81 Resp 20 20 14 B/P 123/62 131/65 177/82 Pulse Ox 97 98 97 O2 Delivery Room Air Room Air Room Air Room Air 10/09/16 10/10/16 10/10/16 10/10/16 23:10 03:40 07:00 08:00 Temp 98.2 98.5 98.3 98.2 98.5 98.3 Pulse 78 74 76 Resp 16 18 18 B/P 164/74 163/83 135/71 Pulse Ox 100 96 96 O2 Delivery Room Air Room Air Room Air Room Air Intake and Output 10/09/16 10/09/16 10/10/16 15:00 23:00 07:00 Intake Total 360 ml Balance 360 ml AMBER CRUZ MD Oct 10, 2016 10:51
[2016-10-10] MEDS: METOPROLOL SUCC 24HR ER 25 MG TAB.ER.24H. PO SCH (13:03)
--- NOTE | 2016-10-10 19:15 | CONS ---
DATE OF CONSULTATION: 10/09/2016 HISTORY OF PRESENT ILLNESS: An 86-year-old gentleman who we were consulted to see by Dr. Anderson for [id number] renal insufficiency. His baseline creatinine runs about 2-2.5 most of the time. He had blood work done at his facility and was noted to be much higher, reportedly was in the 3s. He was sent to the ER for evaluation. Blood pressure was 196/91. His flu swab was positive for influenza A. Hence, admitted to the hospital for further evaluation. Creatinine on arrival here was 2.1, which is rare and it is down to 1.9 today. The patient is noted to have issues with dehydration, poor p.o. intake. It is unclear to me if this is recent associated with the flu or chronic associated with his underlying dementia. 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 He is not the best historian and is unable to provide me with much in terms of history. For the rest of details, please see electronic renal consult note. KAT JONES MD DR: BRADFORD/bill JOB#: [id number] / [id number]
[2016-10-10 20:12] LABS: FOLIC ACID 19.1 ng/mL (>3.0)
[2016-10-11 02:06] VITALS: BP 155/83
[2016-10-11 05:49] LABS: CALCIUM 8.3 mg/dL (8.5-10.1); CREATININE 1.7 mg/dL (0.7-1.3); GFR 46.6; POTASSIUM 3.5 mmol/L (3.5-5.1)
[2016-10-11 07:00] VITALS: BP 177/81
[2016-10-11] MEDS: OSELTAMIVIR 30 MG CAPSULE PO SCH (08:11)
[2016-10-11] MEDS: METOPROLOL SUCC 24HR ER 25 MG TAB.ER.24H. PO SCH (08:13)
[2016-10-11 11:00] VITALS: BP 150/67
[2016-10-11] MEDS ORDERED: FURO40TA4 PO (11:43)
[2016-10-11] MEDS ORDERED: POTA20TA82 PO (11:43)
[2016-10-11] MEDS ORDERED: ONDA4TAB12 PO (11:43)
[2016-10-11] MEDS ORDERED: NITR1PAT11 TD (11:43)
[2016-10-11] MEDS ORDERED: ATORVASTATIN CA80 MG PO (11:43)
[2016-10-11] MEDS ORDERED: METO50TA10 PO (11:43)
--- NOTE | 2016-10-11 12:49 | PDOC ---
PROGRESS NOTES Subjective Subjective does not talk to me. discussed with who concurs with DNR status. she does not want him to return to [place] and is unhappy with his care there. she wants him to go to [facility] but I am not familiar with this. discussed hospice and she will think about it. discussed his poor prognosis with his severe cardiomyopathy. eating and drinking better. lab reviewed. will start losartan and continue metoprolol and add amlodipine. palliative care consult ordered. Objective Objective Vital Signs Date Time Temp Pulse Resp B/P Pulse Ox O2 Delivery O2 Flow Rate FiO2 10/11/16 08:13 71 177/81 10/11/16 08:00 Room Air 10/11/16 07:00 98.2 100 98.2 10/11/16 02:06 20 Intake and Output 10/11/16 07:00 Intake Total 800 ml Output Total 550 ml Balance 250 ml Intake Oral 400 ml IV Total 0 ml Blood Product IV Normal Saline Flush 400 ml Output Urine Total 550 ml # Voids 6 Physical Exam Abdomen: Soft Heart: Regular rate, Normal S1, Normal S2 Extremities: No edema General: Other (eyes closed. does not talk to me) HEENT: Atraumatic Lungs: Other (clear anteriorly) Neuro: Other (does not talk to me) Psych/Mental Status: Other (calm) Skin: No rashes Assessment Assessment Problems Medical Problems:1. Influenza type A. 2. Metabolic encephalopathy secondary to the influenza and acute kidney injury. 3. chronic kidney disease, stage III. FAUSTINO resolved 4. Alzheimer's disease. 5. Coronary artery disease. 6. Ischemic cardiomyopathy.severe LVEF 10-15% 7. Hypertension.blood pressure high 8. Hyperlipidemia. 9. Chronic systolic congestive heart failure. 10. Thrombocytopenia. mild (1) Dehydration Status: Acute (2) Mental status change Status: Acute (3) Renal insufficiency Status: Acute (4) Type A influenza Status: Acute Plan Plan of Care change to DNR status start losartan and continue metoprolol start amlodipine consult palliative care lab tomorrow to consider hospice screen for another fci Comment Review of Relevant I have reviewed the following items jeb (where applicable) has been applied. Labs Laboratory Tests Test 10/10/16 08:40 10/10/16 08:56 10/11/16 05:00 Sodium Level 145mmol/L (136-145) 143mmol/L (136-145) Potassium Level 3.9mmol/L (3.5-5.1) 3.5mmol/L (3.5-5.1) Chloride Level 110mmol/L (98-107) 109mmol/L (98-107) Carbon Dioxide Level 27mmol/L (21-32) 27mmol/L (21-32) Anion Gap 8 (6-14) 7 (6-14) Blood Urea Nitrogen 35mg/dL (8-26) 25mg/dL (8-26) Creatinine 1.8mg/dL (0.7-1.3) 1.7mg/dL (0.7-1.3) Estimated GFR (Cockcroft-Gault) 43.6 46.6 Glucose Level 88mg/dL (70-99) 81mg/dL (70-99) Calcium Level 8.6mg/dL (8.5-10.1) 8.3mg/dL (8.5-10.1) White Blood Count 4.4x10^3/uL (4.0-11.0) Red Blood Count 3.82x10^6/uL (4.30-5.70) Hemoglobin 11.1g/dL (13.0-17.5) Hematocrit 33.6% (39.0-53.0) Mean Corpuscular Volume 88fL (79-100) Mean Corpuscular Hemoglobin 29pg (25-35) Mean Corpuscular Hemoglobin Concent 33g/dL (31-37) Red Cell Distribution Width 12.9% (11.5-14.5) Platelet Count 105x10^3/uL (140-400) Neutrophils (%) (Auto) 57% (31-73) Lymphocytes (%) (Auto) 28% (24-48) Monocytes (%) (Auto) 11% (0-9) Eosinophils (%) (Auto) 4% (0-3) Basophils (%) (Auto) 0% (0-3) Neutrophils # (Auto) 2.5x10^3uL (1.8-7.7) Lymphocytes # (Auto) 1.2x10^3/uL (1.0-4.8) Monocytes # (Auto) 0.5x10^3/uL (0.0-1.1) Eosinophils # (Auto) 0.2x10^3/uL (0.0-0.7) Basophils # (Auto) 0.0x10^3/uL (0.0-0.2) Vitamin B12 Level 969pg/mL (211-946) Folic Acid (LAB) 19.1ng/mL (>3.0) Laboratory Tests Test 10/11/16 05:00 Sodium Level 143mmol/L (136-145) Potassium Level 3.5mmol/L (3.5-5.1) Chloride Level 109mmol/L (98-107) Carbon Dioxide Level 27mmol/L (21-32) Anion Gap 7 (6-14) Blood Urea Nitrogen 25mg/dL (8-26) Creatinine 1.7mg/dL (0.7-1.3) Estimated GFR (Cockcroft-Gault) 46.6 Glucose Level 81mg/dL (70-99) Calcium Level 8.3mg/dL (8.5-10.1) Microbiology 10/08/16 Urine Culture - Final, Complete 10/08/16 Urine Culture Result 1 (HERBIE) - Final, Complete Medications Current Medications Sodium Chloride (Iv Sodium Chloride 0.9% 1000ml Bag) 1,000 ml @ 60 mls/hr 1X ONCE IV Last administered on 10/08/16 19:22; Start 10/08/16 at 18:00; Stop 10/09 at 10:39; Status DC Oseltamivir Phosphate (Tamiflu) 75 mg BID PO ; Start 10/09/16 at 09:00; Stop at 08:59; Status Cancel Oseltamivir Phosphate (Tamiflu) 75 mg 1X ONCE PO Last administered on 18:15; Start 10/08/16 at 18:15; Stop 10/08/16 at 18:16; Status DC Oseltamivir Phosphate (Tamiflu) 30 mg DAILY PO Last administered on 10/11/16 08:11; Start 10/09/16 at 09:00; Stop 10/14/16 at 08:59 Ondansetron HCl 4 mg 4 mg PRN Q8HRS PRN IV NAUSEA/VOMITING; Start 10/08/16 at 18 :45; Stop 10/09/16 at 18:44; Status DC Sodium Chloride (Iv Sodium Chloride 0.9% 1000ml Bag) 1,000 ml @ 60 mls/hr [id number] IV ; Start 10/08/16 at 18:38; Stop 10/09/16 at 09:07; Status DC Acetaminophen 650 mg 650 mg PRN Q4HRS PRN PO FEVER; Start 10/08/16 at 18:45; Stop 10/09/16 at 16:24; Status DC Sodium Chloride (Iv Sodium Chloride 0.45%) 1,000 ml @ 40 mls/hr Q24H IV Last administered on 10/10/16 08:37; Start 10/09/16 at 09:00 Acetaminophen (Tylenol) 650 mg PRN Q4HRS PRN PO MILD PAIN / TEMP; Start at 09:00 Metoprolol Succinate (Toprol Xl) 25 mg DAILY PO Last administered on 10/11/16 08:13; Start 10/10/16 at 12:00 Active Scripts Active Reported Ondansetron Odt (Ondansetron) 4 Mg Tab.rapdis 1 Tab PO DAILY PRN Potassium Chloride 20 Meq Tablet.er 20 Meq PO DAILY Metoprolol Succinate 50 Mg Tab.er.24h 25 Mg PO NITRO-DUR 0.6mg/hr (Nitroglycerin) 1 Each Patch.td24 1 Each TD Furosemide 40 Mg Tablet 40 Mg PO DAILY Atorvastatin Calcium 80 Mg Tablet 1 Tab PO DAILY Aspirin 81 Mg Tab.chew 81 Mg PO DAILY Zetia (Ezetimibe) 10 Mg Tablet 10 Mg PO DAILY Aricept (Donepezil Hcl) 10 Mg Tablet 10 Mg PO HS Vitals/I & O Vital Sign - Last 24 Hours 10/10/16 10/10/16 10/10/16 10/10/16 13:03 15:00 19:28 20:14 Temp 98.5 97.8 98.5 97.8 Pulse 80 79 76 Resp 18 16 B/P 143/75 153/72 172/77 Pulse Ox 95 98 O2 Delivery Room Air Room Air Room Air 10/10/16 10/11/16 10/11/16 10/11/16 23:31 02:06 07:00 08:00 Temp 98.3 97.9 98.2 98.3 97.9 98.2 Pulse 73 74 77 Resp 18 20 B/P 159/79 155/83 177/81 Pulse Ox 99 100 100 O2 Delivery Room Air Room Air Room Air Room Air 10/11/16 08:13 Pulse 71 B/P 177/81 Intake and Output 10/10/16 10/10/16 10/11/16 15:00 23:00 07:00 Intake Total 800 ml 0 ml Output Total 550 ml Balance 250 ml 0 ml AMBER CRUZ MD Oct 11, 2016 12:49
--- NOTE | 2016-10-11 13:10 | PDOC ---
Provider Note Provider Note A consult was dictated at 5 PM on the 10/10.. This is not in the chart and hopefully will be available tomorrow. Patient is lying flat and has no shortness of breath. Lungs are clear. No mprovement in creatinine with IV fluids. We could discontinue it becausewith his lowc EF he could go into CHF. CORNELIA ROCHA MD Oct 11, 2016 13:10
[2016-10-11] MEDS: LOSARTAN POTASSIUM 50 MG TABLET. PO SCH (13:47)
[2016-10-11] MEDS: AMLODIPINE BESYLATE 5 MG TABLET PO SCH (13:48)
[2016-10-11 15:00] VITALS: BP 156/74
[2016-10-11 19:28] VITALS: BP 139/66
--- NOTE | 2016-10-11 21:09 | CONS ---
DATE OF CONSULTATION: HISTORY OF PRESENT ILLNESS: This is an 86-year-old black male who resides in a assisted. He was brought to [facility] Emergency Room because of change in mental status and not eating or drinking well. In the Emergency Room, he was noted to have elevated troponin and elevated creatinine. He was thus hospitalized. As far as his cardiac status goes, this patient has had coronary artery bypass grafting several years ago. He was hospitalized in 2014 with congestive heart failure. This cleared. The echocardiogram done in 2014 showed an EF of 35-40%. The pulmonary artery systolic pressure was 46 mmHg. His creatinine was 1.8. He is said to have had a myocardial perfusion imaging study in 2014, though I did not see a record of that. It is said to have shown a large area of perfusion defects. He refused coronary arteriograms at that time. MEDICATIONS: Listed as. 1. Amlodipine 5 mg a day. 2. Aspirin 81 mg a day. 3. Plavix 75 mg a day. 4. Aricept 10 mg a day. 5. Zetia 10 mg a day. 6. Isosorbide mononitrate 60 mg a day. 7. Namenda 5 mg a day. 8. Toprol-XL 50 mg a day. 9. Nitroglycerin p.r.n. 10. Ranexa 500 mg a day. 11. Crestor 20 mg at night. PHYSICAL EXAMINATION: GENERAL: He was seated in a chair. He did not answer simple questions. His was at the bedside and answered most of the questions. However, he denied having any chest pain or shortness of breath. PHYSICAL EXAMINATION: VITAL SIGNS: The heart rate was 80 per minute. The blood pressure was 140/70. LUNGS: Clear. HEART: Sounds were normal with no murmur or gallop. EXTREMITIES: There was no edema of the legs. LABORATORY DATA: The EKG could not be visualized on [facility]. I will try to look at it on . A chest x-ray showed no evidence of vascular congestion. An echocardiogram was done. There is a definite deterioration in his left ventricular systolic pressure. The left ventricle is mildly enlarged to 5.38 cm. Ejection fraction is about 10-15%. There was severe global hypokinesis of the left ventricle occupying the anterior wall and apex. This was thus ischemic cardiomyopathy. There is probably a diastolic dysfunction, but the parameters for diastolic dysfunction were not all measured. There is s no significant valvular dysfunction. The right ventricular systolic pressure could not be evaluated. IMPRESSION: 1. Ischemic cardiomyopathy with further deterioration of the left ventricular systolic function to 10-15%. 2. No evidence of significant clinical congestive heart failure. 3. Chronic kidney disease and agree with IV fluids to see if this would improve. He would need to be closely watched for development of pulmonary vascular congestion. 4. The troponins are mildly elevated, which could be due to the mild incipient congestive heart failure and/or due to the renal failure. It could also be due to myocarditis that can occur with influenza A. RECOMMENDATIONS: At present, he is asymptomatic. He is on appropriate medical therapy with vasodilators, platelet inhibitors, beta blockers. He is not on ZARINA or ARB. I would wait for improvement in his renal functions to add ZARINA or ARB. Myocardial perfusion imaging study can be done to look for any large perfusion defect in the coronary artery territory. With the myocarditis, he is bound to have an abnormal perfusion defect with multiple defects. Since he refused coronary arteriograms 3 years ago and because of his mental status, he is not an ideal candidate for coronary revascularization. I will discuss this further with Dr. Anderson. Thank you, Dr. Anderson for asking me to see him. CORNELIA ROCHA MD DR: ANNETTA/bill JOB#: [id number] / [id number]
[2016-10-11 23:45] VITALS: BP 133/66
[2016-10-12 03:00] VITALS: BP 163/74
[2016-10-12 07:17] VITALS: BP 162/69
--- NOTE | 2016-10-12 09:04 | PDOC ---
PROGRESS NOTES Subjective Subjective up in chair and eating breakfast. alert. lab reviewed. urine culture negative.blood pressure a little high and was started on medications yesterday. Objective Objective Vital Signs Date Time Temp Pulse Resp B/P Pulse Ox O2 Delivery O2 Flow Rate FiO2 10/12/16 07:17 98.5 75 18 162/69 97 Room Air 98.5 Intake and Output 10/12/16 07:00 Intake Total 0 ml Balance 0 ml Intake Oral 0 ml # Voids 4 Physical Exam Abdomen: Soft Heart: Regular rate, Normal S1, Normal S2 Extremities: No edema General: Alert HEENT: Atraumatic Lungs: Clear to auscultation Neuro: Other (does not talk much) Psych/Mental Status: Mood NL Skin: No rashes Assessment Assessment Problems Medical Problems:1. Influenza type A. 2. Metabolic encephalopathy secondary to the influenza and acute kidney injury. 3. chronic kidney disease, stage III. FAUSTINO resolved 4. Alzheimer's disease. 5. Coronary artery disease. 6. Ischemic cardiomyopathy.severe LVEF 10-15% 7. Hypertension. 8. Hyperlipidemia. 9. Chronic systolic congestive heart failure. 10. Thrombocytopenia. mild (1) Dehydration Status: Acute (2) Mental status change Status: Acute (3) Renal insufficiency Status: Acute (4) Type A influenza Status: Acute Plan Plan of Care [facility] to prison when arrangements made Comment Review of Relevant I have reviewed the following items jeb (where applicable) has been applied. Labs Laboratory Tests Test 10/11/16 05:00 Sodium Level 143mmol/L (136-145) Potassium Level 3.5mmol/L (3.5-5.1) Chloride Level 109mmol/L (98-107) Carbon Dioxide Level 27mmol/L (21-32) Anion Gap 7 (6-14) Blood Urea Nitrogen 25mg/dL (8-26) Creatinine 1.7mg/dL (0.7-1.3) Estimated GFR (Cockcroft-Gault) 46.6 Glucose Level 81mg/dL (70-99) Calcium Level 8.3mg/dL (8.5-10.1) Microbiology 10/08/16 Urine Culture - Final, Complete 10/08/16 Urine Culture Result 1 (HERBIE) - Final, Complete Medications Current Medications Sodium Chloride (Iv Sodium Chloride 0.9% 1000ml Bag) 1,000 ml @ 60 mls/hr 1X ONCE IV Last administered on 10/08/16 19:22; Start 10/08/16 at 18:00; Stop 10/09 at 10:39; Status DC Oseltamivir Phosphate (Tamiflu) 75 mg BID PO ; Start 10/09/16 at 09:00; Stop at 08:59; Status Cancel Oseltamivir Phosphate (Tamiflu) 75 mg 1X ONCE PO Last administered on 18:15; Start 10/08/16 at 18:15; Stop 10/08/16 at 18:16; Status DC Oseltamivir Phosphate (Tamiflu) 30 mg DAILY PO Last administered on 10/11/16 08:11; Start 10/09/16 at 09:00; Stop 10/14/16 at 08:59 Ondansetron HCl 4 mg 4 mg PRN Q8HRS PRN IV NAUSEA/VOMITING; Start 10/08/16 at 18 :45; Stop 10/09/16 at 18:44; Status DC Sodium Chloride (Iv Sodium Chloride 0.9% 1000ml Bag) 1,000 ml @ 60 mls/hr [id number] IV ; Start 10/08/16 at 18:38; Stop 10/09/16 at 09:07; Status DC Acetaminophen 650 mg 650 mg PRN Q4HRS PRN PO FEVER; Start 10/08/16 at 18:45; Stop 10/09/16 at 16:24; Status DC Sodium Chloride (Iv Sodium Chloride 0.45%) 1,000 ml @ 40 mls/hr Q24H IV Last administered on 10/10/16 08:37; Start 10/09/16 at 09:00; Stop 10/11/16 at 12:42 ; Status DC Acetaminophen (Tylenol) 650 mg PRN Q4HRS PRN PO MILD PAIN / TEMP; Start at 09:00 Metoprolol Succinate (Toprol Xl) 25 mg DAILY PO Last administered on 10/11/16 08:13; Start 10/10/16 at 12:00 Amlodipine Besylate (Norvasc) 5 mg DAILY PO Last administered on 10/11/16 13: 48; Start 10/11/16 at 13:00 Losartan Potassium (Cozaar) 50 mg DAILY PO Last administered on 2/12/17at 13:47 ; Start 10/11/16 at 13:00 Active Scripts Active Reported Ondansetron Odt (Ondansetron) 4 Mg Tab.rapdis 1 Tab PO DAILY PRN Potassium Chloride 20 Meq Tablet.er 20 Meq PO DAILY Metoprolol Succinate 50 Mg Tab.er.24h 25 Mg PO NITRO-DUR 0.6mg/hr (Nitroglycerin) 1 Each Patch.td24 1 Each TD Furosemide 40 Mg Tablet 40 Mg PO DAILY Atorvastatin Calcium 80 Mg Tablet 1 Tab PO DAILY Aspirin 81 Mg Tab.chew 81 Mg PO DAILY Zetia (Ezetimibe) 10 Mg Tablet 10 Mg PO DAILY Aricept (Donepezil Hcl) 10 Mg Tablet 10 Mg PO HS Vitals/I & O Vital Sign - Last 24 Hours 10/11/16 10/11/16 10/11/16 10/11/16 11:00 13:47 13:48 15:00 Temp 98.5 98.3 98.5 98.3 Pulse 62 71 71 72 Resp 16 18 B/P 150/67 177/81 177/81 156/74 Pulse Ox 97 97 O2 Delivery Room Air Room Air 10/11/16 10/11/16 10/11/16 10/12/16 19:28 20:00 23:45 03:00 Temp 98.0 97.9 98.5 98.0 97.9 98.5 Pulse 66 71 75 Resp 18 16 18 B/P 139/66 133/66 163/74 Pulse Ox 97 98 98 O2 Delivery Room Air Room Air Room Air Room Air 10/12/16 07:17 Temp 98.5 98.5 Pulse 75 Resp 18 B/P 162/69 Pulse Ox 97 O2 Delivery Room Air Intake and Output 10/11/16 10/11/16 10/12/16 15:00 23:00 07:00 Intake Total 0 ml Balance 0 ml AMBER CRUZ MD Oct 12, 2016 09:04
[2016-10-12 09:24] LABS: BASO % 0 % (0-3); EOS % 3 % (0-3); HEMOGLOBIN 11.8 g/dL (13.0-17.5); LYMPH # 1.6 x10^3/uL (1.0-4.8); LYMPH % 28 % (24-48); MEAN CORPUSCULAR HEMOGLOBIN 29 pg (25-35); MEAN CORPUSCULAR HGB CONC 33 g/dL (31-37); MEAN CORPUSCULAR VOLUME 88 fL (79-100); MONO % 9 % (0-9); NEUT % 60 % (31-73); PLATELET COUNT 182 x10^3/uL (140-400); RED CELL DISTRIBUTION WIDTH 12.9 % (11.5-14.5); WHITE BLOOD COUNT 5.8 x10^3/uL (4.0-11.0)
[2016-10-12 09:29] LABS: CALCIUM 8.6 mg/dL (8.5-10.1); CREATININE 1.9 mg/dL (0.7-1.3); POTASSIUM 3.9 mmol/L (3.5-5.1)
[2016-10-12] MEDS ORDERED: ASPIRIN 81 MG TAB.CHEW PO SCH (10:00)
[2016-10-12] MEDS: LOSARTAN POTASSIUM 50 MG TABLET. PO SCH (10:23)
[2016-10-12] MEDS: OSELTAMIVIR 30 MG CAPSULE PO SCH (10:24)
[2016-10-12] MEDS: METOPROLOL SUCC 24HR ER 25 MG TAB.ER.24H. PO SCH (10:24)
[2016-10-12] MEDS: AMLODIPINE BESYLATE 5 MG TABLET PO SCH (10:25)
[2016-10-12 10:42] VITALS: BP 140/63
--- NOTE | 2016-10-12 12:03 | PDOC ---
SUBJECTIVE ROS CKD III Doing OK [facility] unable to get reliable ROS OBJECTIVE Vital Signs Vital Signs Date Time Temp Pulse Resp B/P Pulse Ox O2 Delivery O2 Flow Rate FiO2 10/12/16 10:42 98.3 59 18 140/63 96 Room Air 98.3 I & 0 Intake and Output 10/12/16 07:00 Intake Total 0 ml Balance 0 ml Intake Oral 0 ml # Voids 4 PHYSICAL EXAM Physical Exam GEN: Awake, Oriented x ?, In no distress EYES: Vision Unchanged, Conjunctiva Normal EN: No EN Drainage, Mucous Membranes moist NECK: no JVD, no JVP, Supple, no Thyromegaly CVS: S1S2, ? Murmur, No Gallop, No Rub,no Edema RESP: no Rales, no Rhonchi,no Acc. Muscle Use GI: BS + ve, NO Bruit, Non Tender, Non Distended : no CVA tenderness, no Suprapubic Tenderness Assessment & Plan FAUSTINO - dehydration - better with IVF as given - encourage PO fluids as mary ellen CKD III/ Iv - Craet back to baseline CHF with Ef 10-15%: Clinically compensated - Flu - defer management to Dr Anderson Marginal Anemia Complex Renal Cyst - URO Eval as OP with US in 6 m; Doubt Candidacy for any surgery OK to Dc/ Form renal standpoint COMMENT/RELEVANT DATA Meds Current Medications Medications (Trade) Dose Ordered Sig/Rivera Start Time Stop Time Status Last Admin Dose Admin Acetaminophen (Tylenol) 650 mg PRN Q4HRS PRN 10/09/16 09:00 Acetaminophen 650 mg 650 mg PRN Q4HRS PRN 10/08/16 18:45 10/09/16 16:24 DC Amlodipine Besylate (Norvasc) 5 mg DAILY 10/11/16 13:00 10/12/16 10:25 5 MG Aspirin (Children'S Aspirin) 81 mg [id number] 10/12/16 10:00 10/12/16 10:28 81 MG Atorvastatin Calcium (Lipitor) 10 mg QHS 10/12/16 21:00 Losartan Potassium (Cozaar) 50 mg DAILY 10/11/16 13:00 10/12/16 10:23 50 MG Metoprolol Succinate (Toprol Xl) 25 mg DAILY 10/10/16 12:00 10/12/16 10:24 25 MG Ondansetron HCl 4 mg 4 mg PRN Q8HRS PRN 10/08/16 18:45 10/09/16 18:44 DC Oseltamivir Phosphate (Tamiflu) 30 mg DAILY 10/09/16 09:00 10/14/16 08:59 10/12/16 10:24 30 MG Sodium Chloride (Iv Sodium Chloride 0.45%) 1,000 ml @ 40 mls/hr Q24H 10/09/16 09:00 10/11/16 12:42 DC 10/10/16 08:37 60 MLS/HR Sodium Chloride (Iv Sodium Chloride 0.9% 1000ml Bag) 1,000 ml @ 60 mls/hr [id number] 10/08/16 18:38 10/09/16 09:07 DC Lab Laboratory Tests Test 10/12/16 08:00 10/12/16 08:50 White Blood Count 5.8x10^3/uL (4.0-11.0) Red Blood Count 4.10x10^6/uL (4.30-5.70) Hemoglobin 11.8g/dL (13.0-17.5) Hematocrit 36.0% (39.0-53.0) Mean Corpuscular Volume 88fL (79-100) Mean Corpuscular Hemoglobin 29pg (25-35) Mean Corpuscular Hemoglobin Concent 33g/dL (31-37) Red Cell Distribution Width 12.9% (11.5-14.5) Platelet Count 182x10^3/uL (140-400) Neutrophils (%) (Auto) 60% (31-73) Lymphocytes (%) (Auto) 28% (24-48) Monocytes (%) (Auto) 9% (0-9) Eosinophils (%) (Auto) 3% (0-3) Basophils (%) (Auto) 0% (0-3) Neutrophils # (Auto) 3.5x10^3uL (1.8-7.7) Lymphocytes # (Auto) 1.6x10^3/uL (1.0-4.8) Monocytes # (Auto) 0.5x10^3/uL (0.0-1.1) Eosinophils # (Auto) 0.2x10^3/uL (0.0-0.7) Basophils # (Auto) 0.0x10^3/uL (0.0-0.2) Sodium Level 145mmol/L (136-145) Potassium Level 3.9mmol/L (3.5-5.1) Chloride Level 110mmol/L (98-107) Carbon Dioxide Level 22mmol/L (21-32) Anion Gap 13 (6-14) Blood Urea Nitrogen 22mg/dL (8-26) Creatinine 1.9mg/dL (0.7-1.3) Estimated GFR (Cockcroft-Gault) 41.0 Glucose Level 85mg/dL (70-99) Calcium Level 8.6mg/dL (8.5-10.1) Other Impression: 1.There is no hydronephrosis of either kidney. 2. There is increased echogenicity of the renal parenchyma bilaterally which may be seen with medical renal disease. Both kidneys are small. 3. There is a hypoechoic lesion of the right kidney, may be due to a complex cyst which is considered more likely than mass given lack of significant internal vascularity on color Doppler imaging. 6 month follow-up may be beneficial given internal echoes. KAT JONES MD Oct 12, 2016 12:03
[2016-10-12 14:11] VITALS: BP 145/72
--- NOTE | 2016-10-12 14:13 | PDOC ---
Provider Note Provider Note discharge summary dictated # [id number] AMBER CRUZ MD Oct 12, 2016 14:13
--- NOTE | 2016-10-12 14:15 | DISCH ---
DISCHARGE INSTRUCTIONS Condition on Discharge Condition on Discharge: Stable Activity After Discharge Activity Instructions for Disc: Resume previous activity Diet after Discharge Diet after Discharge: Cardiac Contacting the DR. after DC Call your doctor for: If your condition worsens Follow-Up Follow up with: with [facility] AMBER CRUZ MD Oct 12, 2016 14:15
--- NOTE | 2016-10-12 16:20 | PDOC2 ---
PALLIATIVE CARE Palliative Care Note Palliative Care Consult requested by Dr. Anderson to address code status and goals of care/ hospice. Patient not responding to questions. Diagnosis; Influenza A; Metabolic encephalopathy, A/C Kidney failure; Alzheimer , CAD, ischemic cardiomyopathy, HTn CHF --EF 10-15%; Spoke with Jolanta. She is aware of medical condition and discharge plan She requests DNR/DNI and Hospice consult when returning to [facility]. Dr. Anderson page. Alina GARCIA aware of patient's request. Plan: FPC with Hospice DNR/DNI JOEY YOUNG Oct 12, 2016 16:20
[2016-10-12 19:50] VITALS: BP 126/89
[2016-10-12] MEDS ORDERED: ATORVASTATIN CALCIUM 10 MG TABLET. PO SCH (21:00)
--- NOTE | 2016-10-12 21:59 | DS ---
DATE OF DISCHARGE: 10/12/2016 CONSULTANTS: Stef Cameron MD and Nazia Silver MD FINAL DIAGNOSES: 1. Influenza type A. 2. Acute kidney injury on top of chronic kidney disease stage III, most likely secondary to inadequate fluid intake. 3. Metabolic encephalopathy. 4. Alzheimer's disease. 5. Coronary artery disease. 6. Ischemic cardiomyopathy with left ventricular ejection fraction of 10%-15%. 7. Hypertension. 8. Hyperlipidemia. 9. Thrombocytopenia. 10. Chronic systolic congestive heart failure. HOSPITAL COURSE: The patient is an 86-year-old -[place] male resident of a [place] [facility], cared for by another physician [facility] because he was not eating or drinking well and the serum creatinine was up to 3.0 ____ baseline of around 1.6. The patient is a poor historian and is hard of hearing. In the Emergency Room, he was diagnosed with influenza type A, also had acute kidney injury on top of chronic kidney disease and was started on low rate IV fluids. The patient was admitted to the hospital, does have a history of Alzheimer disease, chronic systolic congestive heart failure, coronary artery disease, hypertension, hyperlipidemia and cerebrovascular accident in the past. 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 The patient was started on a low rate of IV fluids. An echocardiogram showed a left ventricular ejection fraction of 10%-15%. His blood pressure was elevated, was started on metoprolol, lisinopril, and amlodipine. I spoke with the patient's who wanted to be a do not resuscitate and also agreed with hospice. The patient was eating and drinking better and received Tamiflu for his influenza type A. He did not have any acute congestive heart failure and his thrombocytopenia was mild. He was seen by Dr. Silver for cardiology and Dr. Stef Cameron for nephrology. He will be dismissed to another [place] [facility] later today, have hospice evaluation as an outpatient. He will be dismissed on Tylenol 650 mg every 4 hours p.r.n., amlodipine 5 mg every day, aspirin 81 mg every day, atorvastatin 10 mg at bedtime, losartan 50 mg every day, metoprolol succinate 25 mg every day and he finished his Tamiflu today at 30 mg daily. He is a do not resuscitate and to be evaluated by hospice as an outpatient and to be transferred to the [place] [facility] later today. AMBER CRUZ MD DR: MIRIAM/bill JOB#: [id number] / [id number]
== END 2016-10-12 16:00 | DRG 682 ==
LOC: ER 15:02 → 2 NORTH 17:48
PROVIDERS: ADMIT Internal Medicine; ATTEND Internal Medicine
DX: N17.9 Acute kidney failure, unspecified (principal); G93.41 Metabolic encephalopathy; I50.22 Chronic systolic (congestive) heart failure; J11.1 Influenza due to unidentified influenza virus with other respiratory manifestations; I12.9 Hypertensive chronic kidney disease with stage 1 through stage 4 chronic kidney disease, or unspecified chronic kidney disease; Z86.73 Personal history of transient ischemic attack (TIA), and cerebral infarction without residual deficits; I25.10 Atherosclerotic heart disease of native coronary artery without angina pectoris; F02.80 Dementia in other diseases classified elsewhere, unspecified severity, without behavioral disturbance, psychotic disturbance, mood disturbance, and anxiety; G30.9 Alzheimer's disease, unspecified; E78.5 Hyperlipidemia, unspecified; Z66 Do not resuscitate; N18.3 Chronic kidney disease, stage 3 (moderate); Z88.0 Allergy status to penicillin; D69.6 Thrombocytopenia, unspecified; G93.89 Other specified disorders of brain; H54.42 Blindness, left eye, normal vision right eye; I25.5 Ischemic cardiomyopathy; Z88.8 Allergy status to other drugs, medicaments and biological substances; Z79.82 Long term (current) use of aspirin; Z79.899 Other long term (current) drug therapy; Z95.1 Presence of aortocoronary bypass graft; Z51.5 Encounter for palliative care
CPT/HCPCS: 36415; 70450; 71010; 76770; 80048; 80053; 81001; 82607; 82746; 83880; 84443; 84484; 85007; 85027; 85610; 85730; 87086; 87804; 93005; 93306; G0481; J7030; 99285-25

== ENCOUNTER 2016-11-21 13:53 | Emergency (ER) | payer OTHER ==
[~2016-11-21] VITALS: Ht 177.8 cm; Wt 70.3 kg
[~2016-11-21 13:53] MED LIST changes: +ATORVASTATIN CA80 MG PO; +FURO40TA4 PO; +METO50TA10 PO; +NITR1PAT11 TD; +ONDA4TAB12 PO; +POTA20TA82 PO
--- NOTE | 2016-11-21 14:47 | RAD ---
Indication shortness of breath. A single view of the chest was obtained and is compared to an examination 10/08/2016. The level of inspiratory effort is not quite as good as on the previous exam. There is suggested mild congestive heart failure. A consolidated pneumonia is not seen. There may be tiny pleural effusions. Postoperative changes are noted. IMPRESSION: Suboptimal inspiratory effort. Mild congestive heart failure not excluded. No definite focal consolidated pneumonia seen
[2016-11-21 15:29] LABS: CALCIUM 9.3 mg/dL (8.5-10.1); CREATININE 1.9 mg/dL (0.7-1.3); POTASSIUM 3.8 mmol/L (3.5-5.1)
[2016-11-21 15:32] LABS: BASO % 1 % (0-3); EOS % 2 % (0-3); HEMATOCRIT 32.8 % (39.0-53.0); HEMOGLOBIN 10.3 g/dL (13.0-17.5); LYMPH # 1.1 x10^3/uL (1.0-4.8); LYMPH % 17 % (24-48); MEAN CORPUSCULAR HEMOGLOBIN 29 pg (25-35); MEAN CORPUSCULAR HGB CONC 31 g/dL (31-37); MEAN CORPUSCULAR VOLUME 91 fL (79-100); MONO % 10 % (0-9); NEUT % 71 % (31-73); PLATELET COUNT 214 x10^3/uL (140-400); RED BLOOD COUNT 3.61 x10^6/uL (4.30-5.70); RED CELL DISTRIBUTION WIDTH 14.7 % (11.5-14.5); WHITE BLOOD COUNT 6.6 x10^3/uL (4.0-11.0)
--- NOTE | 2016-11-21 15:48 | PHYS DOC ---
Past Medical History Past Medical History: CHF, Dementia, High Cholesterol, Hypertension, [place], Other Additional Past Medical Histor: ALZHEIMERS,ANGINA Past Surgical History: Coronary Bypass Surgery, Other Additional Past Surgical Histo: UNKNOWN Alcohol Use: None Drug Use: None Adult General Chief Complaint Chief Complaint: SHORTNESS OF BREATH HPI HPI Patient is a 86 year old male who presents by EMS from nursing facility for dyspnea noticed by family. He notes minimal dyspnea that is constant. Family notes 2 days of worsening orthopnea and increased work of breathing at rest. No swelling noted by patient or family. He denies chest pain, cough, f/c, n/v, abdominal pain. Review of Systems Review of Systems Constitutional: Denies fever or chills [] Eyes: Denies change in visual acuity, redness, or eye pain [] HENT: Denies nasal congestion or sore throat [] Respiratory: Denies cough [] Cardiovascular: No additional information not addressed in HPI [] GI: Denies abdominal pain, nausea, vomiting, bloody stools or diarrhea [] : Denies dysuria or hematuria [] Musculoskeletal: Denies back pain or joint pain [] Integument: Denies rash or skin lesions [] Neurologic: Denies headache, focal weakness or sensory changes [] Endocrine: Denies polyuria or polydipsia [] Allergies Allergies Allergies Coded Allergies Type Severity Reaction Last Updated Verified Penicillins Allergy Intermediate Unknown 11/17/13 Yes venlafaxine HCl Adverse Reaction Mild HALLUCINATIONS 11/27/13 Yes Physical Exam Physical Exam Constitutional: Well developed, well nourished, no acute distress, non-toxic appearance. [] HENT: Normocephalic, atraumatic, bilateral external ears normal, oropharynx moist, no oral exudates, nose normal. [] Eyes: PERRLA, EOMI, conjunctiva normal, no discharge. [] Neck: Normal range of motion, supple, no stridor. [] Cardiovascular:Heart rate regular rhythm [] Lungs & Thorax: Bilateral breath sounds clear to auscultation, with minimal bibasilar crackles [] Abdomen: Bowel sounds normal, soft, no tenderness. [] Skin: Warm, dry, no erythema, no rash. [] Back: Normal ROM. [] Extremities: No tenderness, ROM intact, no edema. [] Neurologic: Alert and oriented to self, normal motor function, normal sensory function, no focal deficits noted. [] Psychologic: Affect normal, judgement impaired, mood normal. [] Current Patient Data Vital Signs Vital Signs Date Time Temp Pulse Resp B/P Pulse Ox O2 Delivery O2 Flow Rate FiO2 11/21/16 15:57 106 24 190/110 Nasal Cannula 11/21/16 14:27 95 11/21/16 14:05 98.1 98.1 Lab Values Laboratory Tests Test 11/21/16 15:10 White Blood Count 6.6x10^3/uL (4.0-11.0) Red Blood Count 3.61x10^6/uL (4.30-5.70) L Hemoglobin 10.3g/dL (13.0-17.5) L Hematocrit 32.8% (39.0-53.0) L Mean Corpuscular Volume 91fL (79-100) Mean Corpuscular Hemoglobin 29pg (25-35) Mean Corpuscular Hemoglobin Concent 31g/dL (31-37) Red Cell Distribution Width 14.7% (11.5-14.5) H Platelet Count 214x10^3/uL (140-400) Neutrophils (%) (Auto) 71% (31-73) Lymphocytes (%) (Auto) 17% (24-48) L Monocytes (%) (Auto) 10% (0-9) H Eosinophils (%) (Auto) 2% (0-3) Basophils (%) (Auto) 1% (0-3) Neutrophils # (Auto) 4.7x10^3uL (1.8-7.7) Lymphocytes # (Auto) 1.1x10^3/uL (1.0-4.8) Monocytes # (Auto) 0.6x10^3/uL (0.0-1.1) Eosinophils # (Auto) 0.2x10^3/uL (0.0-0.7) Basophils # (Auto) 0.0x10^3/uL (0.0-0.2) Sodium Level 145mmol/L (136-145) Potassium Level 3.8mmol/L (3.5-5.1) Chloride Level 110mmol/L (98-107) H Carbon Dioxide Level 23mmol/L (21-32) Anion Gap 12 (6-14) Blood Urea Nitrogen 34mg/dL (8-26) H Creatinine 1.9mg/dL (0.7-1.3) H Estimated GFR (Cockcroft-Gault) 41.0 Glucose Level 120mg/dL (70-99) H Calcium Level 9.3mg/dL (8.5-10.1) Troponin I Quantitative 0.019ng/mL (0.000-0.055) XN-Bib-I-Type Natriuretic Peptide 06024rm/mL (0-449) H Laboratory Tests 11/21/16 15:10 Laboratory Tests 11/21/16 15:10 EKG EKG EKG as interpreted by me as normal sinus rhythm, rate 89, AR 192, QTC 489, no ST -T changes, no ectopy Radiology/Procedures Radiology/Procedures Chest x-ray as interpreted by me showing bilateral pulmonary edema and atelectasis, under-inspired film compared to prior Course & Med Decision Making Course & Med Decision Making Pertinent Labs and Imaging studies reviewed. (See chart for details) 1550: Has slight oxygen requirement, elevation in pro-BNP, pulmonary edema on XR and intermittent dyspnea. He has acute on chronic congestive heart failure. At this time, it is recognized that he is on Hospice for this condition. and nursing facility did not notify us or hospice about hospice status for CHF. Discussed this with , who now will make attempt to contact hospice via nursing facility. 1615: Discussed care with nursing facility to get contact info for [facility], . Bisi, hospice nurse, was notified. Discussed case with Bsii, who recommends return to nursing facility and will have O2 and comfort measures available. Discussed this with and friend who understands and agrees with plan. Dragon Disclaimer Dragon Disclaimer This electronic medical record was generated, in whole or in part, using a voice recognition dictation system. Departure Departure Impression: Primary Impression: CHF exacerbation Disposition: HOME, SELF-CARE Condition: GUARDED Referrals: AMBER CRUZ MD (PCP) Patient Instructions: Heart Failure, [id number] Additional Instructions: Continue hospice care. Return for concerns. Problem Qualifiers Primary Impression: CHF exacerbation Congestive heart failure type: unspecified congestive heart failure type Qualified Code: I50.9 - Heart failure, unspecified Sai FITZGERALD MD Nov 21, 2016 15:48
[2016-11-21 16:49] VITALS: BP 182/94
--- NOTE | 2016-11-25 08:43 | EKG ---
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
== END 2016-11-21 18:05 | disposition home or self-care (01) ==
LOC: ER 13:53
DX: I11.0 Hypertensive heart disease with heart failure (principal); E78.00 Pure hypercholesterolemia, unspecified; I50.9 Heart failure, unspecified; F02.80 Dementia in other diseases classified elsewhere, unspecified severity, without behavioral disturbance, psychotic disturbance, mood disturbance, and anxiety; F03.90 Unspecified dementia, unspecified severity, without behavioral disturbance, psychotic disturbance, mood disturbance, and anxiety; G30.9 Alzheimer's disease, unspecified; I25.2 Old myocardial infarction; Z95.1 Presence of aortocoronary bypass graft; Z88.0 Allergy status to penicillin; Z88.8 Allergy status to other drugs, medicaments and biological substances
CPT/HCPCS: 36415; 71010; 80048; 83880; 84484; 85027; 99285-25